=== PATIENT | female | born 1930 | race Two or more races ===

== ENCOUNTER 2017-05-15 09:17 | Inpatient (IN) | payer MEDICARE, OTHER ==
[2017-05-15 09:42] LABS: AADO2 Arterial 230.4 mmHg (7.0-24.0); ADD MAN DIFF? NO; Allen Test ACCEPTAB; Arterial Blood Gas Oxygen Sat 95.8 mmHG (95.0-100.0); Arterial COHb 0.3 % (0.0-3.0); Arterial Fraction of Oxyhgb 95.4 % (93.0-99.0); Arterial HCO3 21.2 mmol/L (22.0-26.0); Arterial MetHb 0.1 % (0.0-1.5); Arterial Total Hemglobin 10.7 g/dl (12.0-18.0); Arterial pCO2 34.9 mmhg (35-45); Blood Gas IEPAP 15/5; Blood Gas PS 10; MODE MASK - BIPAP; Site Right Radial
[2017-05-15 09:45] LABS: WHITE BLOOD COUNT 8.4 10^3/ul (4.8-10.8)
[2017-05-15 09:45] LABS: BASOPHILS % 0.4 % (0.0-2.0); EOSINOPHILS # 0.2 10^3/ul (0.0-0.5); EOSINOPHILS % 2.7 % (0.0-7.0); HEMOGLOBIN 9.8 g/dl (12.0-16.0); LYMPHOCYTES # 0.9 10^3/ul (0.8-2.9); LYMPHOCYTES % 10.6 % (15.0-51.0); MEAN CORPUSCULAR HEMOGLOBIN 31.3 pg (29.0-33.0); MEAN CORPUSCULAR HGB CONC 32.7 g/dl (32.0-37.0); MEAN CORPUSCULAR VOLUME 95.8 fl (82.0-101.0); MEAN PLATELET VOLUME 10.1 fl (7.4-10.4); MONOCYTE # 0.5 10^3/ul (0.3-0.9); MONOCYTES % 5.5 % (0.0-11.0); NEUTROPHIL # 6.7 10^3/ul (1.6-7.5); NEUTROPHILS % 80.3 % (39.0-77.0); PLATELET COUNT 234 10^3/UL (140-415); RED BLOOD COUNT 3.13 10^6/ul (4.20-5.40); RED CELL DISTRIBUTION WIDTH 14.7 % (11.5-14.5)
[2017-05-15] MEDS: NITROGLYCERIN 2% 1 GM OINT PKT TD (09:48)
[2017-05-15] MEDS: ASPIRIN 325 MG TAB PO (09:48)
[2017-05-15] MEDS: FUROSEMIDE 40 MG INJ IV ×2 (09:48→18:34)
[2017-05-15 10:04] LABS: ALANINE AMINOTRANSFERASE 22 IU/L (13-69); ALBUMIN 3.5 g/dl (3.3-4.9); ALBUMIN/GLOBULIN RATIO 1.12; ALKALINE PHOSPHATASE 53 IU/L (42-121); ANION GAP 20 (8-16); ASPARTATE AMINO TRANSFERASE 28 IU/L (15-46); BILIRUBIN,INDIRECT 0.1 mg/dl (0-1.1); BILIRUBIN,TOTAL 0.1 mg/dl (0.2-1.3); BLOOD UREA NITROGEN 51 mg/dl (7-20); CALCIUM 7.9 mg/dl (8.4-10.2); CARBON DIOXIDE 19 mmol/L (21-31); CHLORIDE 108 mmol/L (97-110); CREATININE 1.97 mg/dl (0.44-1.00); GLUCOSE 137 mg/dl (70-220); POTASSIUM 3.7 mmol/L (3.5-5.1); SODIUM 143 mmol/L (135-144); TOTAL PROTEIN 6.6 g/dl (6.1-8.1)
[2017-05-15 10:16] LABS: B-TYPE NATRIURETIC PEPTIDE 30100 PG/ML (0-450)
[2017-05-15 10:36] LABS: INR 1.15; PROTIME 14.9 Sec (11.9-14.9); PT RATIO 1.2
[2017-05-15] MEDS: hydrALAzine 20 MG INJ IV (10:36)
[2017-05-15 10:37] LABS: PARTIAL THROMBOPLASTIN TIME 36.2 Sec (25.0-35.0)
[2017-05-15 10:40] LABS: LACTIC ACID 0.9 mmol/L (0.5-2.0)
[2017-05-15] MEDS ORDERED: ACETAMINOPHEN 325 MG TAB PO ×2 (11:00→15:00)
[2017-05-15] MEDS: ALBUTEROL 0.083% (NEB) 2.5 MG/3 ML AMP NEB (11:51)
[2017-05-15] MEDS: IPRATROPIUM (NEB) 0.5 MG/2.5 ML AMP NEB (11:51)
[2017-05-15 13:28] LABS: LACTIC ACID 0.8 mmol/L (0.5-2.0)
[2017-05-15] MEDS: ONDANSETRON 4 MG INJ IV ×2 (13:54→18:39)
[2017-05-15] MEDS: morphine 4 MG/ML VIAL IV (13:55)
[2017-05-15 17:54] LABS: LACTIC ACID 1.3 mmol/L (0.5-2.0)
[2017-05-15 17:56] LABS: CREATINE KINASE 42 IU/L (23-200)
[2017-05-15 18:07] LABS: CK INDEX 3.5; CK-MB 1.46 ng/ml (0.0-2.4)
[2017-05-15 18:11] LABS: TROPONIN-I 0.289 ng/ml (0.00-0.12)
[2017-05-15] MEDS: NIFEdipine (XL) 60 MG TAB PO (20:27)
[2017-05-15] MEDS: ISOSORBIDE MONONITRATE(SR)60 MG TAB PO (20:28)
[2017-05-15] MEDS: LORAZEPAM 0.5 MG TAB PO (22:16)
[2017-05-15 23:26] LABS: CREATINE KINASE 38 IU/L (23-200)
[2017-05-15 23:40] LABS: CK INDEX 4.2; CK-MB 1.59 ng/ml (0.0-2.4)
[2017-05-15 23:45] LABS: TROPONIN-I 0.262 ng/ml (0.00-0.12)
[2017-05-16] MEDS: PANTOPRAZOLE (EC) 40 MG TAB PO (05:27)
[2017-05-16 07:38] LABS: ADD MAN DIFF? NO
[2017-05-16 07:54] LABS: BASOPHILS % 0.6 % (0.0-2.0); EOSINOPHILS # 0.2 10^3/ul (0.0-0.5); EOSINOPHILS % 3.7 % (0.0-7.0); HEMATOCRIT 26.4 % (37.0-47.0); HEMOGLOBIN 8.7 g/dl (12.0-16.0); LYMPHOCYTES # 1.1 10^3/ul (0.8-2.9); LYMPHOCYTES % 20.9 % (15.0-51.0); MEAN CORPUSCULAR HEMOGLOBIN 31.6 pg (29.0-33.0); MEAN PLATELET VOLUME 9.8 fl (7.4-10.4); MONOCYTE # 0.5 10^3/ul (0.3-0.9); MONOCYTES % 9.8 % (0.0-11.0); NEUTROPHIL # 3.3 10^3/ul (1.6-7.5); NEUTROPHILS % 64.6 % (39.0-77.0); PLATELET COUNT 193 10^3/UL (140-415); RED BLOOD COUNT 2.75 10^6/ul (4.20-5.40); RED CELL DISTRIBUTION WIDTH 14.5 % (11.5-14.5)
[2017-05-16 07:54] LABS: WHITE BLOOD COUNT 5.1 10^3/ul (4.8-10.8)
[2017-05-16 08:00] LABS: ANION GAP 19 (8-16); BLOOD UREA NITROGEN 54 mg/dl (7-20); CALCIUM 8.3 mg/dl (8.4-10.2); CARBON DIOXIDE 25 mmol/L (21-31); CHLORIDE 104 mmol/L (97-110); CREATININE 2.34 mg/dl (0.44-1.00); GLUCOSE 90 mg/dl (70-220); POTASSIUM 3.6 mmol/L (3.5-5.1); SODIUM 144 mmol/L (135-144)
[2017-05-16 08:29] LABS: B-TYPE NATRIURETIC PEPTIDE 52900 PG/ML (0-450)
[2017-05-16] MEDS: FUROSEMIDE 40 MG INJ IV ×2 (08:41→19:09)
[2017-05-16] MEDS: ISOSORBIDE MONONITRATE(SR)60 MG TAB PO ×2 (08:42→13:12)
[2017-05-16] MEDS: METOPROLOL 50 MG TAB PO ×2 (08:43→20:49)
[2017-05-16] MEDS: ASPIRIN (EC) 325 MG TAB PO (08:43)
[2017-05-16] MEDS: LORAZEPAM 0.5 MG TAB PO (20:48)
[2017-05-17] MEDS: PANTOPRAZOLE (EC) 40 MG TAB PO (06:03)
[2017-05-17 08:41] LABS: ADD MAN DIFF? NO
[2017-05-17 08:47] LABS: BASOPHILS % 0.4 % (0.0-2.0); EOSINOPHILS # 0.2 10^3/ul (0.0-0.5); EOSINOPHILS % 4.5 % (0.0-7.0); HEMATOCRIT 24.4 % (37.0-47.0); HEMOGLOBIN 8.2 g/dl (12.0-16.0); MEAN CORPUSCULAR HEMOGLOBIN 31.7 pg (29.0-33.0); MEAN CORPUSCULAR HGB CONC 33.6 g/dl (32.0-37.0); MEAN CORPUSCULAR VOLUME 94.2 fl (82.0-101.0); MEAN PLATELET VOLUME 9.9 fl (7.4-10.4); MONOCYTE # 0.5 10^3/ul (0.3-0.9); MONOCYTES % 9.2 % (0.0-11.0); NEUTROPHIL # 3.2 10^3/ul (1.6-7.5); NEUTROPHILS % 64.7 % (39.0-77.0); PLATELET COUNT 176 10^3/UL (140-415); RED BLOOD COUNT 2.59 10^6/ul (4.20-5.40)
[2017-05-17 08:47] LABS: WHITE BLOOD COUNT 4.9 10^3/ul (4.8-10.8)
[2017-05-17] MEDS: METOPROLOL 50 MG TAB PO (09:03)
[2017-05-17] MEDS: ISOSORBIDE MONONITRATE(SR)60 MG TAB PO (09:03)
[2017-05-17] MEDS: ASPIRIN (EC) 325 MG TAB PO (09:03)
[2017-05-17] MEDS: FUROSEMIDE 40 MG INJ IV (09:04)
[2017-05-17 09:07] LABS: CHOL/HDL RATIO 3.2 RATIO; HDL CHOLESTEROL 35 mg/dl (33-92); LDL CHOLESTEROL,CALCULATED 47 mg/dl; TRIGLYCERIDES 160 mg/dl (0-149)
[2017-05-17 09:07] LABS: CHOLESTEROL 114 mg/dl (100-200)
[2017-05-17 09:11] LABS: CREATINE KINASE 40 IU/L (23-200)
[2017-05-17 09:19] LABS: CK INDEX 2.9; CK-MB 1.16 ng/ml (0.0-2.4)
== END 2017-05-17 14:00 | disposition home or self-care (01) | DRG 291 ==
LOC: E/R 09:17 → MS4 10:33
DX: I13.0 Hypertensive heart and chronic kidney disease with heart failure and stage 1 through stage 4 chronic kidney disease, or unspecified chronic kidney disease (principal); J96.00 Acute respiratory failure, unspecified whether with hypoxia or hypercapnia; N17.9 Acute kidney failure, unspecified; I50.33 Acute on chronic diastolic (congestive) heart failure; I16.1 Hypertensive emergency; N18.9 Chronic kidney disease, unspecified; E11.9 Type 2 diabetes mellitus without complications; J44.9 Chronic obstructive pulmonary disease, unspecified
CPT/HCPCS: 36415; 36600; 71045; 80048; 80053; 80061; 82550; 82553; 82803; 83605; 83880; 84484; 85025; 85610; 85730; 87040; 93005; 93306; 94660; 94664; 96374; 96375; 99291-25

== ENCOUNTER 2017-08-21 17:27 | Inpatient (IN) | payer MEDICARE, OTHER ==
[2017-08-21 18:17] LABS: ADD MAN DIFF? NO
[2017-08-21 18:18] LABS: WHITE BLOOD COUNT 9.5 10^3/ul (4.8-10.8)
[2017-08-21 18:18] LABS: BASOPHILS % 0.3 % (0.0-2.0); EOSINOPHILS # 0.1 10^3/ul (0.0-0.5); EOSINOPHILS % 1.4 % (0.0-7.0); HEMATOCRIT 30.8 % (37.0-47.0); HEMOGLOBIN 9.9 g/dl (12.0-16.0); LYMPHOCYTES # 0.9 10^3/ul (0.8-2.9); LYMPHOCYTES % 9.9 % (15.0-51.0); MEAN CORPUSCULAR HEMOGLOBIN 32.4 pg (29.0-33.0); MEAN CORPUSCULAR HGB CONC 32.1 g/dl (32.0-37.0); MEAN CORPUSCULAR VOLUME 100.7 fl (82.0-101.0); MEAN PLATELET VOLUME 10.8 fl (7.4-10.4); MONOCYTE # 0.5 10^3/ul (0.3-0.9); MONOCYTES % 5.1 % (0.0-11.0); NEUTROPHIL # 7.8 10^3/ul (1.6-7.5); NEUTROPHILS % 82.8 % (39.0-77.0); PLATELET COUNT 230 10^3/UL (140-415); RED BLOOD COUNT 3.06 10^6/ul (4.20-5.40); RED CELL DISTRIBUTION WIDTH 15.6 % (11.5-14.5)
[2017-08-21 18:39] LABS: ANION GAP 16 (8-16); BLOOD UREA NITROGEN 73 mg/dl (7-20); CALCIUM 8.9 mg/dl (8.4-10.2); CARBON DIOXIDE 20 mmol/L (21-31); CHLORIDE 111 mmol/L (97-110); GLUCOSE 142 mg/dl (70-220); POTASSIUM 4.1 mmol/L (3.5-5.1); SODIUM 143 mmol/L (135-144)
[2017-08-21 18:49] LABS: INR 1.16; PT RATIO 1.2
[2017-08-21 18:50] LABS: PARTIAL THROMBOPLASTIN TIME 31.2 Sec (25.0-35.0)
[2017-08-21 18:51] LABS: TROPONIN-I 0.054 ng/ml (0.000-0.120)
[2017-08-21 19:30] LABS: B-TYPE NATRIURETIC PEPTIDE 78300 PG/ML (0-450)
[2017-08-21] MEDS ORDERED: ONDANSETRON 4 MG INJ IV (20:00)
[2017-08-21 20:04] LABS: AADO2 Arterial 185.9 mmHg (7.0-24.0); Allen Test ACCEPTAB; Arterial Base Excess -2.2 mmol/L (-3.0-3); Arterial Blood Gas Oxygen Sat 98.2 mmHG (95.0-100.0); Arterial COHb 0.3 % (0.0-3.0); Arterial Fraction of Oxyhgb 97.7 % (93.0-99.0); Arterial HCO3 21.7 mmol/L (22.0-26.0); Arterial MetHb 0.2 % (0.0-1.5); Arterial Total Hemglobin 9.7 g/dl (12.0-18.0); Arterial pCO2 33.6 mmhg (35-45); Blood Gas IEPAP 15/5; MODE BIPAP; Site Right Radial
[2017-08-21] MEDS: ACETAMINOPHEN 325 MG TAB PO (23:25)
[2017-08-21] MEDS: NIFEdipine (XL) 60 MG TAB PO (23:26)
[2017-08-21] MEDS: FERROUS SULFATE (EC) 325 MG TAB PO (23:26)
[2017-08-22] MEDS: LORAZEPAM 0.5 MG TAB PO ×2 (00:20→22:40)
[2017-08-22 06:22] LABS: ADD MAN DIFF? NO
[2017-08-22 06:28] LABS: WHITE BLOOD COUNT 5.6 10^3/ul (4.8-10.8)
[2017-08-22 06:28] LABS: BASOPHILS % 0.5 % (0.0-2.0); EOSINOPHILS # 0.1 10^3/ul (0.0-0.5); EOSINOPHILS % 1.8 % (0.0-7.0); HEMATOCRIT 25.3 % (37.0-47.0); HEMOGLOBIN 8.2 g/dl (12.0-16.0); LYMPHOCYTES # 1.2 10^3/ul (0.8-2.9); LYMPHOCYTES % 20.7 % (15.0-51.0); MEAN CORPUSCULAR HEMOGLOBIN 32.2 pg (29.0-33.0); MEAN CORPUSCULAR HGB CONC 32.4 g/dl (32.0-37.0); MEAN CORPUSCULAR VOLUME 99.2 fl (82.0-101.0); MEAN PLATELET VOLUME 10.3 fl (7.4-10.4); MONOCYTE # 0.5 10^3/ul (0.3-0.9); MONOCYTES % 8.2 % (0.0-11.0); NEUTROPHIL # 3.8 10^3/ul (1.6-7.5); NEUTROPHILS % 68.4 % (39.0-77.0); PLATELET COUNT 183 10^3/UL (140-415); RED BLOOD COUNT 2.55 10^6/ul (4.20-5.40); RED CELL DISTRIBUTION WIDTH 15.6 % (11.5-14.5)
[2017-08-22 07:03] LABS: ANION GAP 13 (8-16); BLOOD UREA NITROGEN 72 mg/dl (7-20); CALCIUM 8.6 mg/dl (8.4-10.2); CARBON DIOXIDE 23 mmol/L (21-31); CHLORIDE 112 mmol/L (97-110); CREATININE 2.26 mg/dl (0.44-1.00); GLUCOSE 100 mg/dl (70-220); POTASSIUM 3.6 mmol/L (3.5-5.1); SODIUM 144 mmol/L (135-144)
[2017-08-22 07:43] LABS: B-TYPE NATRIURETIC PEPTIDE 85500 PG/ML (0-450)
[2017-08-22] MEDS: FUROSEMIDE 40 MG INJ IV ×3 (08:13→21:15)
[2017-08-22] MEDS: PANTOPRAZOLE (EC) 40 MG TAB PO (08:13)
[2017-08-22] MEDS: METOPROLOL 50 MG TAB PO ×2 (08:14→16:58)
[2017-08-22] MEDS ORDERED: FUROSEMIDE 40 MG TAB PO (09:00)
[2017-08-22] MEDS ORDERED: INSULIN ASPART [NOVOLOG] 3 ML PEN SC ×3 (09:00→11:50)
[2017-08-22] MEDS: INSULIN ASPART [NOVOLOG] 3 ML PEN SC ×4 (09:00→21:00)
[2017-08-22] MEDS: ASPIRIN (EC) 81 MG TAB PO (09:08)
[2017-08-22] MEDS: FENOFIBRATE 145 MG TAB PO (09:08)
[2017-08-22] MEDS: ALLOPURINOL 100 MG TAB PO (09:08)
[2017-08-22] MEDS: NIFEdipine (XL) 60 MG TAB PO ×2 (09:09→21:13)
[2017-08-22] MEDS: FERROUS SULFATE (EC) 325 MG TAB PO ×2 (09:09→21:11)
[2017-08-22] MEDS: POTASSIUM CHLORIDE (SR) 10 MEQ TAB PO (09:09)
[2017-08-22 09:37] LABS: IRON 51 ug/dl (35-150)
[2017-08-22 09:47] LABS: % IRON SATURATION 20 % SAT (22-52); TOTAL IRON BINDING CAPACITY 257 ug/dl (241-421)
[2017-08-22] MEDS ORDERED: GLUCOSE GEL 15 GRAM TUBE PO ×2 (10:00)
[2017-08-22] MEDS ORDERED: DEXTROSE 50% 50 ML SYRINGE IV ×2 (10:00)
[2017-08-22] MEDS ORDERED: GLUCOSE GEL 15 GRAM TUBE BUCCAL (10:00)
[2017-08-22] MEDS ORDERED: GLUCAGON 1 MG INJ IM (10:00)
[2017-08-22] MEDS: EPOETIN 3000 UNITS/ML (NON ESRD/NON ONCOLOGY) SC (17:52)
[2017-08-23] MEDS: ACCU-CHEK XX ×2 (01:35→23:36)
[2017-08-23 01:37] LABS: CREATINE KINASE 22 IU/L (23-200)
[2017-08-23 01:50] LABS: CK INDEX 2.1; CK-MB 0.46 ng/ml (0.0-2.4); TROPONIN-I 0.065 ng/ml (0.000-0.120)
[2017-08-23] MEDS: FUROSEMIDE 40 MG INJ IV ×3 (06:53→21:57)
[2017-08-23] MEDS: PANTOPRAZOLE (EC) 40 MG TAB PO (06:54)
[2017-08-23 07:03] LABS: ADD MAN DIFF? NO
[2017-08-23 07:17] LABS: WHITE BLOOD COUNT 5.1 10^3/ul (4.8-10.8)
[2017-08-23 07:18] LABS: BASOPHILS % 0.2 % (0.0-2.0); EOSINOPHILS # 0.1 10^3/ul (0.0-0.5); EOSINOPHILS % 1.6 % (0.0-7.0); HEMATOCRIT 24.8 % (37.0-47.0); MEAN CORPUSCULAR HEMOGLOBIN 31.7 pg (29.0-33.0); MEAN CORPUSCULAR HGB CONC 32.3 g/dl (32.0-37.0); MEAN CORPUSCULAR VOLUME 98.4 fl (82.0-101.0); MEAN PLATELET VOLUME 10.8 fl (7.4-10.4); MONOCYTE # 0.3 10^3/ul (0.3-0.9); MONOCYTES % 6.7 % (0.0-11.0); NEUTROPHIL # 3.6 10^3/ul (1.6-7.5); NEUTROPHILS % 71.1 % (39.0-77.0); PLATELET COUNT 178 10^3/UL (140-415); RED BLOOD COUNT 2.52 10^6/ul (4.20-5.40); RED CELL DISTRIBUTION WIDTH 15.3 % (11.5-14.5)
[2017-08-23 07:48] LABS: CHOL/HDL RATIO 3.3 RATIO; CK-MB 0.35 ng/ml (0.0-2.4); HDL CHOLESTEROL 26 mg/dl (33-92); LDL CHOLESTEROL,CALCULATED 29 mg/dl; TRIGLYCERIDES 166 mg/dl (0-149)
[2017-08-23 07:48] LABS: CHOLESTEROL 88 mg/dl (100-200)
[2017-08-23 07:50] LABS: CREATINE KINASE < 20 IU/L (23-200)
[2017-08-23] MEDS: INSULIN ASPART [NOVOLOG] 3 ML PEN SC ×4 (07:55→22:02)
[2017-08-23 08:00] LABS: ANION GAP 17 (8-16); BLOOD UREA NITROGEN 84 mg/dl (7-20); CALCIUM 8.4 mg/dl (8.4-10.2); CARBON DIOXIDE 23 mmol/L (21-31); CHLORIDE 104 mmol/L (97-110); CREATININE 2.19 mg/dl (0.44-1.00); GLUCOSE 107 mg/dl (70-220); POTASSIUM 3.9 mmol/L (3.5-5.1); SODIUM 140 mmol/L (135-144)
[2017-08-23 08:04] LABS: B-TYPE NATRIURETIC PEPTIDE 100000 PG/ML (0-450)
[2017-08-23] MEDS: POTASSIUM CHLORIDE (SR) 10 MEQ TAB PO (08:24)
[2017-08-23] MEDS: FENOFIBRATE 145 MG TAB PO (08:24)
[2017-08-23] MEDS: ASPIRIN (EC) 81 MG TAB PO (08:24)
[2017-08-23] MEDS: METOPROLOL 50 MG TAB PO ×2 (08:24→17:35)
[2017-08-23] MEDS: FERROUS SULFATE (EC) 325 MG TAB PO ×2 (08:24→21:54)
[2017-08-23] MEDS: NIFEdipine (XL) 60 MG TAB PO ×2 (08:25→21:57)
[2017-08-23] MEDS: ALLOPURINOL 100 MG TAB PO (08:25)
[2017-08-23 14:28] LABS: CREATINE KINASE 21 IU/L (23-200)
[2017-08-23 14:42] LABS: CK INDEX 2.2; CK-MB 0.46 ng/ml (0.0-2.4); TROPONIN-I 0.047 ng/ml (0.000-0.120)
[2017-08-23] MEDS: LORAZEPAM 0.5 MG TAB PO (21:57)
[2017-08-24] MEDS: HYDROCODONE/APAP (5/325) TAB PO (04:16)
[2017-08-24] MEDS: PANTOPRAZOLE (EC) 40 MG TAB PO (04:17)
[2017-08-24] MEDS: FUROSEMIDE 40 MG INJ IV ×3 (06:55→17:17)
[2017-08-24] MEDS: METOPROLOL 50 MG TAB PO ×2 (07:34→17:16)
[2017-08-24] MEDS: INSULIN ASPART [NOVOLOG] 3 ML PEN SC ×4 (07:37→21:00)
[2017-08-24] MEDS: ALLOPURINOL 100 MG TAB PO (08:19)
[2017-08-24] MEDS: FERROUS SULFATE (EC) 325 MG TAB PO ×2 (08:19→21:08)
[2017-08-24] MEDS: FENOFIBRATE 145 MG TAB PO (08:20)
[2017-08-24] MEDS: POTASSIUM CHLORIDE (SR) 10 MEQ TAB PO ×2 (08:20→21:08)
[2017-08-24] MEDS: ASPIRIN (EC) 81 MG TAB PO (08:21)
[2017-08-24] MEDS: NIFEdipine (XL) 60 MG TAB PO ×2 (08:21→21:09)
[2017-08-24] MEDS ORDERED: POTASSIUM CHLORIDE (SR) 10 MEQ TAB PO (18:00)
[2017-08-24 19:16] LABS: B-TYPE NATRIURETIC PEPTIDE 122000 PG/ML (0-450)
[2017-08-24] MEDS: LORAZEPAM 0.5 MG TAB PO (23:05)
[2017-08-25] MEDS: ACCU-CHEK XX (02:00)
[2017-08-25] MEDS: FUROSEMIDE 40 MG INJ IV ×3 (05:38→22:17)
[2017-08-25 06:19] LABS: ADD MAN DIFF? NO
[2017-08-25 06:31] LABS: WHITE BLOOD COUNT 6.2 10^3/ul (4.8-10.8)
[2017-08-25 06:31] LABS: BASOPHILS % 0.6 % (0.0-2.0); EOSINOPHILS # 0.2 10^3/ul (0.0-0.5); EOSINOPHILS % 3.4 % (0.0-7.0); HEMATOCRIT 28.6 % (37.0-47.0); HEMOGLOBIN 9.6 g/dl (12.0-16.0); LYMPHOCYTES # 1.2 10^3/ul (0.8-2.9); LYMPHOCYTES % 19.6 % (15.0-51.0); MEAN CORPUSCULAR HEMOGLOBIN 32.7 pg (29.0-33.0); MEAN CORPUSCULAR HGB CONC 33.6 g/dl (32.0-37.0); MEAN CORPUSCULAR VOLUME 97.3 fl (82.0-101.0); MEAN PLATELET VOLUME 10.6 fl (7.4-10.4); MONOCYTE # 0.5 10^3/ul (0.3-0.9); MONOCYTES % 7.2 % (0.0-11.0); NEUTROPHIL # 4.3 10^3/ul (1.6-7.5); NEUTROPHILS % 68.6 % (39.0-77.0); PLATELET COUNT 233 10^3/UL (140-415); RED BLOOD COUNT 2.94 10^6/ul (4.20-5.40); RED CELL DISTRIBUTION WIDTH 15.1 % (11.5-14.5)
[2017-08-25 06:55] LABS: ANION GAP 18 (8-16); BLOOD UREA NITROGEN 104 mg/dl (7-20); CALCIUM 8.5 mg/dl (8.4-10.2); CARBON DIOXIDE 22 mmol/L (21-31); CHLORIDE 105 mmol/L (97-110); CREATININE 2.84 mg/dl (0.44-1.00); GLUCOSE 113 mg/dl (70-220); POTASSIUM 3.6 mmol/L (3.5-5.1); SODIUM 141 mmol/L (135-144)
[2017-08-25 07:13] LABS: B-TYPE NATRIURETIC PEPTIDE 128000 PG/ML (0-450)
[2017-08-25] MEDS: INSULIN ASPART [NOVOLOG] 3 ML PEN SC ×4 (07:55→22:16)
[2017-08-25] MEDS: PANTOPRAZOLE (EC) 40 MG TAB PO (09:44)
[2017-08-25] MEDS: FENOFIBRATE 145 MG TAB PO (09:45)
[2017-08-25] MEDS: ACETAMINOPHEN 325 MG TAB PO (09:45)
[2017-08-25] MEDS: ASPIRIN (EC) 81 MG TAB PO (09:45)
[2017-08-25] MEDS: FERROUS SULFATE (EC) 325 MG TAB PO ×2 (09:45→22:17)
[2017-08-25] MEDS: POTASSIUM CHLORIDE (SR) 10 MEQ TAB PO ×2 (09:45→22:18)
[2017-08-25] MEDS: ALLOPURINOL 100 MG TAB PO (09:45)
[2017-08-25] MEDS: METOPROLOL 50 MG TAB PO ×2 (09:46→18:01)
[2017-08-25] MEDS: NIFEdipine (XL) 60 MG TAB PO ×2 (09:47→22:18)
[2017-08-25] MEDS: METOLAZONE 5 MG TAB PO (15:14)
[2017-08-25] MEDS: ALBUMIN HUMAN 25% 50 ML IV (17:54)
[2017-08-25] MEDS: EPOETIN 3000 UNITS/ML (NON ESRD/NON ONCOLOGY) SC (17:57)
[2017-08-25] MEDS: LORAZEPAM 0.5 MG TAB PO (22:24)
[2017-08-26] MEDS: ALBUMIN HUMAN 25% 50 ML IV ×2 (00:48→09:12)
[2017-08-26] MEDS: ACCU-CHEK XX (02:00)
[2017-08-26 06:40] LABS: ADD MAN DIFF? NO
[2017-08-26 06:43] LABS: BASOPHILS % 0.7 % (0.0-2.0); EOSINOPHILS # 0.3 10^3/ul (0.0-0.5); EOSINOPHILS % 4.4 % (0.0-7.0); HEMATOCRIT 27.9 % (37.0-47.0); HEMOGLOBIN 9.6 g/dl (12.0-16.0); LYMPHOCYTES # 1.5 10^3/ul (0.8-2.9); MEAN CORPUSCULAR HEMOGLOBIN 33.1 pg (29.0-33.0); MEAN CORPUSCULAR HGB CONC 34.4 g/dl (32.0-37.0); MEAN CORPUSCULAR VOLUME 96.2 fl (82.0-101.0); MEAN PLATELET VOLUME 10.6 fl (7.4-10.4); MONOCYTE # 0.5 10^3/ul (0.3-0.9); MONOCYTES % 7.7 % (0.0-11.0); NEUTROPHIL # 3.6 10^3/ul (1.6-7.5); NEUTROPHILS % 61.9 % (39.0-77.0); PLATELET COUNT 252 10^3/UL (140-415); RED CELL DISTRIBUTION WIDTH 14.9 % (11.5-14.5)
[2017-08-26 06:43] LABS: WHITE BLOOD COUNT 5.9 10^3/ul (4.8-10.8)
[2017-08-26] MEDS: FUROSEMIDE 40 MG INJ IV ×2 (06:45→13:25)
[2017-08-26] MEDS: PANTOPRAZOLE (EC) 40 MG TAB PO (06:46)
[2017-08-26 07:07] LABS: ANION GAP 22 (8-16); BLOOD UREA NITROGEN 113 mg/dl (7-20); CALCIUM 8.9 mg/dl (8.4-10.2); CARBON DIOXIDE 25 mmol/L (21-31); CHLORIDE 99 mmol/L (97-110); CREATININE 3.09 mg/dl (0.44-1.00); GLUCOSE 106 mg/dl (70-220); POTASSIUM 3.5 mmol/L (3.5-5.1); SODIUM 142 mmol/L (135-144)
[2017-08-26 07:34] LABS: B-TYPE NATRIURETIC PEPTIDE 122000 PG/ML (0-450)
[2017-08-26] MEDS: INSULIN ASPART [NOVOLOG] 3 ML PEN SC ×2 (07:55→11:50)
[2017-08-26] MEDS: FERROUS SULFATE (EC) 325 MG TAB PO (09:07)
[2017-08-26] MEDS: ACETAMINOPHEN 325 MG TAB PO (09:07)
[2017-08-26] MEDS: POTASSIUM CHLORIDE (SR) 10 MEQ TAB PO (09:07)
[2017-08-26] MEDS: ALLOPURINOL 100 MG TAB PO (09:08)
[2017-08-26] MEDS: NIFEdipine (XL) 60 MG TAB PO (09:08)
[2017-08-26] MEDS: ASPIRIN (EC) 81 MG TAB PO (09:08)
[2017-08-26] MEDS: METOLAZONE 5 MG TAB PO (09:08)
[2017-08-26] MEDS: METOPROLOL 50 MG TAB PO (09:09)
[2017-08-26] MEDS: FENOFIBRATE 145 MG TAB PO (09:09)
== END 2017-08-26 15:55 | disposition home or self-care (01) | DRG 291 ==
LOC: E/R 17:27 → TEL 20:00
PROC: 5A09457 Assistance with Respiratory Ventilation, 24-96 Consecutive Hours, Continuous Positive Airway Pressure (ICD-10-PCS; principal; 2017-08-21)
DX: I13.0 Hypertensive heart and chronic kidney disease with heart failure and stage 1 through stage 4 chronic kidney disease, or unspecified chronic kidney disease (principal); J96.01 Acute respiratory failure with hypoxia; I50.43 Acute on chronic combined systolic (congestive) and diastolic (congestive) heart failure; J96.02 Acute respiratory failure with hypercapnia; N17.9 Acute kidney failure, unspecified; E11.22 Type 2 diabetes mellitus with diabetic chronic kidney disease; N18.9 Chronic kidney disease, unspecified; M19.90 Unspecified osteoarthritis, unspecified site; I49.3 Ventricular premature depolarization; D63.1 Anemia in chronic kidney disease; E11.21 Type 2 diabetes mellitus with diabetic nephropathy; I25.10 Atherosclerotic heart disease of native coronary artery without angina pectoris; J84.10 Pulmonary fibrosis, unspecified; M41.9 Scoliosis, unspecified; F03.90 Unspecified dementia, unspecified severity, without behavioral disturbance, psychotic disturbance, mood disturbance, and anxiety; E78.5 Hyperlipidemia, unspecified; J44.9 Chronic obstructive pulmonary disease, unspecified; Z86.73 Personal history of transient ischemic attack (TIA), and cerebral infarction without residual deficits; I42.9 Cardiomyopathy, unspecified
CPT/HCPCS: 36415; 36600; 71045; 72100; 80048; 80061; 82550; 82553; 82803; 82962; 83540; 83880; 84484; 85025; 85610; 85730; 93005; 93306; 94660; 99291-25

== ENCOUNTER 2017-10-14 09:05 | Inpatient (IN) | payer MEDICARE, OTHER ==
[2017-10-14 09:35] LABS: ADD MAN DIFF? NO
[2017-10-14 09:39] LABS: BASOPHILS % 0.4 % (0.0-2.0); EOSINOPHILS # 0.1 10^3/ul (0.0-0.5); EOSINOPHILS % 1.8 % (0.0-7.0); HEMATOCRIT 30.5 % (37.0-47.0); HEMOGLOBIN 9.9 g/dl (12.0-16.0); IMMATURE GRANS #M 0.02 10^3/ul; IMMATURE GRANS % (M) 0.3 %; LYMPHOCYTES # 0.9 10^3/ul (0.8-2.9); LYMPHOCYTES % 13.9 % (15.0-51.0); MEAN CORPUSCULAR HEMOGLOBIN 31.9 pg (29.0-33.0); MEAN CORPUSCULAR HGB CONC 32.5 g/dl (32.0-37.0); MEAN CORPUSCULAR VOLUME 98.4 fl (82.0-101.0); MEAN PLATELET VOLUME 10.4 fl (7.4-10.4); MONOCYTE # 0.3 10^3/ul (0.3-0.9); MONOCYTES % 5.1 % (0.0-11.0); NEUTROPHIL # 5.2 10^3/ul (1.6-7.5); NEUTROPHILS % 78.5 % (39.0-77.0); PLATELET COUNT 239 10^3/UL (140-415); RED CELL DISTRIBUTION WIDTH 15.1 % (11.5-14.5)
[2017-10-14 09:39] LABS: WHITE BLOOD COUNT 6.7 10^3/ul (4.8-10.8)
[2017-10-14] MEDS: CEFEPIME 2GM/50 ML (PMX) 50 ML IVPB (09:40)
[2017-10-14 09:57] LABS: INR 1.16; PARTIAL THROMBOPLASTIN TIME 31.5 Sec (25.0-35.0); PT RATIO 1.2
[2017-10-14 09:59] LABS: LACTIC ACID 0.9 mmol/L (0.5-2.0)
[2017-10-14 10:01] LABS: ALANINE AMINOTRANSFERASE 15 IU/L (13-69); ALBUMIN 3.6 g/dl (3.3-4.9); ALBUMIN/GLOBULIN RATIO 1.09; ALKALINE PHOSPHATASE 41 IU/L (42-121); ANION GAP 17 (8-16); ASPARTATE AMINO TRANSFERASE 34 IU/L (15-46); BLOOD UREA NITROGEN 60 mg/dl (7-20); CARBON DIOXIDE 23 mmol/L (21-31); CHLORIDE 105 mmol/L (97-110); CREATININE 2.18 mg/dl (0.44-1.00); GLUCOSE 135 mg/dl (70-220); SODIUM 141 mmol/L (135-144); TOTAL PROTEIN 6.9 g/dl (6.1-8.1)
[2017-10-14 10:12] LABS: TROPONIN-I 0.059 ng/ml (0.000-0.120)
[2017-10-14] MEDS: VANCOMYCIN 1 GM (PMX) 250 ML IVPB (10:29)
[2017-10-14] MEDS ORDERED: ACETAMINOPHEN 325 MG TAB PO (11:30)
[2017-10-14 12:23] LABS: LACTIC ACID 0.6 mmol/L (0.5-2.0)
[2017-10-14] MEDS: ONDANSETRON 4 MG INJ IV (13:37)
[2017-10-14] MEDS: morphine 4 MG/ML VIAL IV (13:37)
[2017-10-14] MEDS ORDERED: DEXTROSE 50% 50 ML SYRINGE IV ×2 (17:30)
[2017-10-14] MEDS ORDERED: GLUCAGON 1 MG INJ IM (17:30)
[2017-10-14] MEDS ORDERED: GLUCOSE GEL 15 GRAM TUBE BUCCAL (17:30)
[2017-10-14] MEDS ORDERED: GLUCOSE GEL 15 GRAM TUBE PO ×2 (17:30)
[2017-10-14] MEDS: INSULIN ASPART [NOVOLOG] 3 ML PEN SC ×2 (17:37→21:00)
[2017-10-14] MEDS ORDERED: ALBUTEROL/IPRATROPIUM (NEB) 3 ML AMP HHN (18:00)
[2017-10-14] MEDS: POTASSIUM CHLORIDE (SR) 10 MEQ TAB PO (18:21)
[2017-10-14] MEDS: CEFTRIAXONE 1 GM/50 ML (PMX) 50 ML IVPB (18:21)
[2017-10-14] MEDS: FUROSEMIDE 40 MG INJ IV (18:21)
[2017-10-14] MEDS: ASPIRIN (EC) 81 MG TAB PO (18:21)
[2017-10-14] MEDS: ISOSORBIDE MONONITRATE(SR)60 MG TAB PO (18:21)
[2017-10-14] MEDS: FENOFIBRATE 145 MG TAB PO (18:22)
[2017-10-14] MEDS: ALBUTEROL/IPRATROPIUM (NEB) 3 ML AMP HHN (20:03)
[2017-10-14] MEDS: FERROUS SULFATE (EC) 325 MG TAB PO (21:28)
[2017-10-14] MEDS: NIFEdipine (XL) 60 MG TAB PO (21:28)
[2017-10-14] MEDS: LORAZEPAM 0.5 MG TAB PO (22:34)
[2017-10-15] MEDS: ACCU-CHEK XX (02:00)
[2017-10-15] MEDS: ALBUTEROL/IPRATROPIUM (NEB) 3 ML AMP HHN ×4 (02:13→21:18)
[2017-10-15 06:07] LABS: ADD MAN DIFF? NO
[2017-10-15 06:20] LABS: BASOPHILS % 0.7 % (0.0-2.0); EOSINOPHILS # 0.2 10^3/ul (0.0-0.5); EOSINOPHILS % 3.4 % (0.0-7.0); HEMATOCRIT 26.4 % (37.0-47.0); HEMOGLOBIN 8.3 g/dl (12.0-16.0); IMMATURE GRANS #M 0.02 10^3/ul; IMMATURE GRANS % (M) 0.5 %; LYMPHOCYTES # 0.9 10^3/ul (0.8-2.9); LYMPHOCYTES % 20.5 % (15.0-51.0); MEAN CORPUSCULAR HEMOGLOBIN 32.2 pg (29.0-33.0); MEAN CORPUSCULAR HGB CONC 31.4 g/dl (32.0-37.0); MEAN CORPUSCULAR VOLUME 102.3 fl (82.0-101.0); MEAN PLATELET VOLUME 9.9 fl (7.4-10.4); MONOCYTE # 0.4 10^3/ul (0.3-0.9); MONOCYTES % 9.5 % (0.0-11.0); NEUTROPHIL # 2.9 10^3/ul (1.6-7.5); NEUTROPHILS % 65.4 % (39.0-77.0); PLATELET COUNT 166 10^3/UL (140-415); RED BLOOD COUNT 2.58 10^6/ul (4.20-5.40); RED CELL DISTRIBUTION WIDTH 14.9 % (11.5-14.5)
[2017-10-15 06:20] LABS: WHITE BLOOD COUNT 4.4 10^3/ul (4.8-10.8)
[2017-10-15 06:47] LABS: ANION GAP 15 (8-16); BLOOD UREA NITROGEN 63 mg/dl (7-20); CALCIUM 8.5 mg/dl (8.4-10.2); CARBON DIOXIDE 23 mmol/L (21-31); CHLORIDE 107 mmol/L (97-110); CREATININE 2.42 mg/dl (0.44-1.00); GLUCOSE 90 mg/dl (70-220); POTASSIUM 4.1 mmol/L (3.5-5.1); SODIUM 141 mmol/L (135-144)
[2017-10-15 07:05] LABS: B-TYPE NATRIURETIC PEPTIDE 143000 PG/ML (0-450)
[2017-10-15] MEDS: PANTOPRAZOLE (EC) 40 MG TAB PO (07:33)
[2017-10-15] MEDS: INSULIN ASPART [NOVOLOG] 3 ML PEN SC ×4 (07:59→21:00)
[2017-10-15] MEDS: POTASSIUM CHLORIDE (SR) 10 MEQ TAB PO (09:37)
[2017-10-15] MEDS: NIFEdipine (XL) 60 MG TAB PO ×2 (09:37→21:57)
[2017-10-15] MEDS: FERROUS SULFATE (EC) 325 MG TAB PO ×2 (09:37→21:57)
[2017-10-15] MEDS: FENOFIBRATE 145 MG TAB PO (09:37)
[2017-10-15] MEDS: ISOSORBIDE MONONITRATE(SR)60 MG TAB PO (09:37)
[2017-10-15] MEDS: ASPIRIN (EC) 81 MG TAB PO (09:37)
[2017-10-15] MEDS: FUROSEMIDE 40 MG INJ IV ×2 (09:38→17:09)
[2017-10-15 11:42] LABS: IRON 67 ug/dl (35-150)
[2017-10-15 11:52] LABS: % IRON SATURATION 26 % SAT (22-52); TOTAL IRON BINDING CAPACITY 254 ug/dl (241-421)
[2017-10-15] MEDS: CEFTRIAXONE 1 GM/50 ML (PMX) 50 ML IVPB (17:09)
[2017-10-15] MEDS: LORAZEPAM 0.5 MG TAB PO (23:59)
[2017-10-16] MEDS: ACCU-CHEK XX (02:00)
[2017-10-16] MEDS: ALBUTEROL/IPRATROPIUM (NEB) 3 ML AMP HHN ×4 (02:06→20:09)
[2017-10-16 05:46] LABS: ADD MAN DIFF? NO
[2017-10-16 05:47] LABS: BASOPHILS % 0.5 % (0.0-2.0); EOSINOPHILS # 0.1 10^3/ul (0.0-0.5); EOSINOPHILS % 3.2 % (0.0-7.0); HEMATOCRIT 26.2 % (37.0-47.0); HEMOGLOBIN 8.5 g/dl (12.0-16.0); LYMPHOCYTES # 0.9 10^3/ul (0.8-2.9); LYMPHOCYTES % 19.5 % (15.0-51.0); MEAN CORPUSCULAR HEMOGLOBIN 32.9 pg (29.0-33.0); MEAN CORPUSCULAR HGB CONC 32.4 g/dl (32.0-37.0); MEAN CORPUSCULAR VOLUME 101.6 fl (82.0-101.0); MEAN PLATELET VOLUME 9.9 fl (7.4-10.4); MONOCYTE # 0.4 10^3/ul (0.3-0.9); MONOCYTES % 8.6 % (0.0-11.0); PLATELET COUNT 173 10^3/UL (140-415); RED BLOOD COUNT 2.58 10^6/ul (4.20-5.40); RED CELL DISTRIBUTION WIDTH 14.7 % (11.5-14.5)
[2017-10-16 05:47] LABS: WHITE BLOOD COUNT 4.4 10^3/ul (4.8-10.8)
[2017-10-16 06:14] LABS: ALANINE AMINOTRANSFERASE 23 IU/L (13-69); ALKALINE PHOSPHATASE 28 IU/L (42-121); ANION GAP 14 (8-16); ASPARTATE AMINO TRANSFERASE 28 IU/L (15-46); BLOOD UREA NITROGEN 70 mg/dl (7-20); CALCIUM 8.2 mg/dl (8.4-10.2); CARBON DIOXIDE 24 mmol/L (21-31); CHLORIDE 105 mmol/L (97-110); CREATININE 2.59 mg/dl (0.44-1.00); GLUCOSE 98 mg/dl (70-220); POTASSIUM 4.1 mmol/L (3.5-5.1); SODIUM 139 mmol/L (135-144)
[2017-10-16] MEDS: FUROSEMIDE 40 MG INJ IV ×2 (06:17→17:18)
[2017-10-16] MEDS: PANTOPRAZOLE (EC) 40 MG TAB PO (06:17)
[2017-10-16 06:21] LABS: URIC ACID 9.1 mg/dl (3.1-7.9)
[2017-10-16 07:17] LABS: CREATININE,URINE RANDOM 28.26 mg/dl (20-320)
[2017-10-16] MEDS: INSULIN ASPART [NOVOLOG] 3 ML PEN SC ×4 (08:00→20:54)
[2017-10-16] MEDS: FENOFIBRATE 145 MG TAB PO (08:37)
[2017-10-16] MEDS: NIFEdipine (XL) 60 MG TAB PO ×2 (08:37→20:54)
[2017-10-16] MEDS: POTASSIUM CHLORIDE (SR) 10 MEQ TAB PO (08:37)
[2017-10-16] MEDS: ASPIRIN (EC) 81 MG TAB PO (08:38)
[2017-10-16] MEDS: FERROUS SULFATE (EC) 325 MG TAB PO ×2 (08:38→20:54)
[2017-10-16] MEDS: ALLOPURINOL 100 MG TAB PO ×2 (08:38→20:54)
[2017-10-16] MEDS: ISOSORBIDE MONONITRATE(SR)60 MG TAB PO (08:38)
[2017-10-16 09:07] LABS: B-TYPE NATRIURETIC PEPTIDE 134000 PG/ML (0-450)
[2017-10-16 10:45] LABS: IMMEDIATE SPIN CROSSMATCH 1 1
[2017-10-16] MEDS: CEFTRIAXONE 1 GM/50 ML (PMX) 50 ML IVPB (17:18)
[2017-10-16] MEDS: LORAZEPAM 0.5 MG TAB PO (22:58)
[2017-10-17] MEDS: ALBUTEROL/IPRATROPIUM (NEB) 3 ML AMP HHN ×4 (01:16→20:59)
[2017-10-17] MEDS: ACETAMINOPHEN 325 MG TAB PO (01:33)
[2017-10-17] MEDS: ACCU-CHEK XX ×2 (02:00→21:17)
[2017-10-17] MEDS: HYDROCODONE/APAP (5/325) TAB PO (04:43)
[2017-10-17 05:54] LABS: ADD MAN DIFF? NO
[2017-10-17 05:56] LABS: BASOPHILS % 0.5 % (0.0-2.0); EOSINOPHILS # 0.1 10^3/ul (0.0-0.5); HEMATOCRIT 33.3 % (37.0-47.0); HEMOGLOBIN 11.2 g/dl (12.0-16.0); LYMPHOCYTES # 0.8 10^3/ul (0.8-2.9); LYMPHOCYTES % 13.6 % (15.0-51.0); MEAN CORPUSCULAR HEMOGLOBIN 32.4 pg (29.0-33.0); MEAN CORPUSCULAR HGB CONC 33.6 g/dl (32.0-37.0); MEAN CORPUSCULAR VOLUME 96.2 fl (82.0-101.0); MEAN PLATELET VOLUME 10.5 fl (7.4-10.4); MONOCYTE # 0.5 10^3/ul (0.3-0.9); MONOCYTES % 8.9 % (0.0-11.0); NEUTROPHIL # 4.4 10^3/ul (1.6-7.5); NEUTROPHILS % 74.7 % (39.0-77.0); PLATELET COUNT 192 10^3/UL (140-415); RED BLOOD COUNT 3.46 10^6/ul (4.20-5.40); RED CELL DISTRIBUTION WIDTH 16.1 % (11.5-14.5)
[2017-10-17] MEDS: FUROSEMIDE 40 MG INJ IV ×2 (06:11→17:29)
[2017-10-17] MEDS: PANTOPRAZOLE (EC) 40 MG TAB PO (06:11)
[2017-10-17 06:32] LABS: ANION GAP 17 (8-16); BLOOD UREA NITROGEN 72 mg/dl (7-20); CALCIUM 8.9 mg/dl (8.4-10.2); CARBON DIOXIDE 24 mmol/L (21-31); CHLORIDE 103 mmol/L (97-110); CREATININE 2.56 mg/dl (0.44-1.00); GLUCOSE 131 mg/dl (70-220); POTASSIUM 3.7 mmol/L (3.5-5.1); SODIUM 140 mmol/L (135-144)
[2017-10-17 06:54] LABS: B-TYPE NATRIURETIC PEPTIDE 143000 PG/ML (0-450)
[2017-10-17] MEDS: INSULIN ASPART [NOVOLOG] 3 ML PEN SC ×4 (07:40→20:23)
[2017-10-17] MEDS ORDERED: MAGNESIUM HYDROXIDE 30ML CUP PO (08:00)
[2017-10-17] MEDS ORDERED: BISACODYL 10 MG SUPP PR (08:00)
[2017-10-17] MEDS ORDERED: CEFTRIAXONE 1 GM/50 ML (PMX) 50 ML IVPB (08:30)
[2017-10-17] MEDS: FERROUS SULFATE (EC) 325 MG TAB PO ×2 (08:45→21:16)
[2017-10-17] MEDS: NIFEdipine (XL) 60 MG TAB PO ×2 (08:46→21:16)
[2017-10-17] MEDS: ASPIRIN (EC) 81 MG TAB PO (08:46)
[2017-10-17] MEDS: DOCUSATE SODIUM 250 MG CAP PO (08:46)
[2017-10-17] MEDS: FENOFIBRATE 145 MG TAB PO (08:46)
[2017-10-17] MEDS: POTASSIUM CHLORIDE (SR) 10 MEQ TAB PO (08:46)
[2017-10-17] MEDS: ALLOPURINOL 100 MG TAB PO ×2 (08:47→21:16)
[2017-10-17] MEDS: ISOSORBIDE MONONITRATE(SR)60 MG TAB PO (08:47)
[2017-10-17] MEDS: ONDANSETRON 4 MG INJ IV (15:56)
[2017-10-17] MEDS: CEFTRIAXONE 1 GM/50 ML (PMX) 50 ML IVPB (17:29)
[2017-10-17] MEDS: LORAZEPAM 0.5 MG TAB PO (22:38)
[2017-10-18] MEDS: ALBUTEROL/IPRATROPIUM (NEB) 3 ML AMP HHN ×4 (02:00→21:54)
[2017-10-18] MEDS: PANTOPRAZOLE (EC) 40 MG TAB PO (06:11)
[2017-10-18] MEDS: FUROSEMIDE 40 MG INJ IV ×2 (06:22→17:18)
[2017-10-18] MEDS: INSULIN ASPART [NOVOLOG] 3 ML PEN SC ×4 (07:43→20:30)
[2017-10-18] MEDS: FERROUS SULFATE (EC) 325 MG TAB PO ×2 (08:00→20:30)
[2017-10-18] MEDS: FENOFIBRATE 145 MG TAB PO (08:00)
[2017-10-18] MEDS: DOCUSATE SODIUM 250 MG CAP PO (08:00)
[2017-10-18] MEDS: ALLOPURINOL 100 MG TAB PO ×2 (08:00→20:30)
[2017-10-18] MEDS: POTASSIUM CHLORIDE (SR) 10 MEQ TAB PO (08:00)
[2017-10-18] MEDS: ISOSORBIDE MONONITRATE(SR)60 MG TAB PO (08:01)
[2017-10-18] MEDS: NIFEdipine (XL) 60 MG TAB PO ×2 (08:01→20:30)
[2017-10-18] MEDS: ASPIRIN (EC) 81 MG TAB PO (08:01)
[2017-10-18] MEDS: CEFTRIAXONE 1 GM/50 ML (PMX) 50 ML IVPB (17:18)
[2017-10-18] MEDS: LORAZEPAM 0.5 MG TAB PO (21:57)
[2017-10-19] MEDS: ALBUTEROL/IPRATROPIUM (NEB) 3 ML AMP HHN ×2 (01:11→08:31)
[2017-10-19] MEDS: ACCU-CHEK XX (02:00)
[2017-10-19] MEDS: FUROSEMIDE 40 MG INJ IV (05:41)
[2017-10-19] MEDS: PANTOPRAZOLE (EC) 40 MG TAB PO (05:41)
[2017-10-19] MEDS: HYDROCODONE/APAP (5/325) TAB PO (05:43)
[2017-10-19 06:13] LABS: ADD MAN DIFF? NO
[2017-10-19 06:16] LABS: BASOPHILS % 0.5 % (0.0-2.0); EOSINOPHILS # 0.2 10^3/ul (0.0-0.5); HEMATOCRIT 33.6 % (37.0-47.0); HEMOGLOBIN 11.1 g/dl (12.0-16.0); LYMPHOCYTES # 1.2 10^3/ul (0.8-2.9); LYMPHOCYTES % 18.2 % (15.0-51.0); MEAN CORPUSCULAR HEMOGLOBIN 31.8 pg (29.0-33.0); MEAN CORPUSCULAR VOLUME 96.3 fl (82.0-101.0); MEAN PLATELET VOLUME 10.3 fl (7.4-10.4); MONOCYTE # 0.6 10^3/ul (0.3-0.9); MONOCYTES % 8.9 % (0.0-11.0); NEUTROPHIL # 4.6 10^3/ul (1.6-7.5); NEUTROPHILS % 69.1 % (39.0-77.0); PLATELET COUNT 193 10^3/UL (140-415); RED BLOOD COUNT 3.49 10^6/ul (4.20-5.40); RED CELL DISTRIBUTION WIDTH 15.8 % (11.5-14.5)
[2017-10-19 06:16] LABS: WHITE BLOOD COUNT 6.6 10^3/ul (4.8-10.8)
[2017-10-19 07:00] LABS: ANION GAP 18 (8-16); BLOOD UREA NITROGEN 80 mg/dl (7-20); CALCIUM 8.8 mg/dl (8.4-10.2); CARBON DIOXIDE 23 mmol/L (21-31); CHLORIDE 105 mmol/L (97-110); CREATININE 2.39 mg/dl (0.44-1.00); GLUCOSE 117 mg/dl (70-220); POTASSIUM 4.1 mmol/L (3.5-5.1); SODIUM 142 mmol/L (135-144)
[2017-10-19 07:05] LABS: B-TYPE NATRIURETIC PEPTIDE 128000 PG/ML (0-450)
[2017-10-19] MEDS: POTASSIUM CHLORIDE (SR) 10 MEQ TAB PO (08:18)
[2017-10-19] MEDS: ASPIRIN (EC) 81 MG TAB PO (08:18)
[2017-10-19] MEDS: ISOSORBIDE MONONITRATE(SR)60 MG TAB PO (08:18)
[2017-10-19] MEDS: DOCUSATE SODIUM 250 MG CAP PO (08:18)
[2017-10-19] MEDS: NIFEdipine (XL) 60 MG TAB PO (08:18)
[2017-10-19] MEDS: ALLOPURINOL 100 MG TAB PO (08:18)
[2017-10-19] MEDS: FERROUS SULFATE (EC) 325 MG TAB PO (08:18)
[2017-10-19] MEDS: FENOFIBRATE 145 MG TAB PO (08:18)
[2017-10-19] MEDS: INSULIN ASPART [NOVOLOG] 3 ML PEN SC ×2 (08:29→11:47)
[2017-10-19] MEDS: CEFTRIAXONE 1 GM/50 ML (PMX) 50 ML IVPB (12:49)
== END 2017-10-19 14:07 | disposition home health service (06) | DRG 871 ==
LOC: E/R 09:05 → 6WM 11:24
PROC: 30233N1 Transfusion of Nonautologous Red Blood Cells into Peripheral Vein, Percutaneous Approach (ICD-10-PCS; principal; 2017-10-16)
DX: A41.9 Sepsis, unspecified organism (principal); N17.0 Acute kidney failure with tubular necrosis; J18.9 Pneumonia, unspecified organism; I13.0 Hypertensive heart and chronic kidney disease with heart failure and stage 1 through stage 4 chronic kidney disease, or unspecified chronic kidney disease; J84.9 Interstitial pulmonary disease, unspecified; E11.42 Type 2 diabetes mellitus with diabetic polyneuropathy; E11.21 Type 2 diabetes mellitus with diabetic nephropathy; I50.9 Heart failure, unspecified; E11.22 Type 2 diabetes mellitus with diabetic chronic kidney disease; M41.9 Scoliosis, unspecified; D63.1 Anemia in chronic kidney disease; G30.9 Alzheimer's disease, unspecified; F02.80 Dementia in other diseases classified elsewhere, unspecified severity, without behavioral disturbance, psychotic disturbance, mood disturbance, and anxiety; N18.9 Chronic kidney disease, unspecified; I25.10 Atherosclerotic heart disease of native coronary artery without angina pectoris; M19.90 Unspecified osteoarthritis, unspecified site; K21.9 Gastro-esophageal reflux disease without esophagitis; E78.5 Hyperlipidemia, unspecified; M81.0 Age-related osteoporosis without current pathological fracture; I25.2 Old myocardial infarction; Z79.4 Long term (current) use of insulin
CPT/HCPCS: 36415; 36430; 71045; 80048; 80053; 81003; 82962; 83540; 83605; 83880; 84155; 84484; 84560; 85025; 85610; 85730; 86850; 86900; 86901; 86920; 87040; 94640; 94664; 96374; 96375; 99291-25

== ENCOUNTER 2017-10-31 23:03 | Inpatient (IN) | payer MEDICARE, OTHER ==
[2017-10-31 23:17] LABS: ADD MAN DIFF? NO
[2017-10-31 23:21] LABS: WHITE BLOOD COUNT 8.9 10^3/ul (4.8-10.8)
[2017-10-31 23:21] LABS: BASOPHIL # 0.1 10^3/ul (0.0-0.1); BASOPHILS % 0.6 % (0.0-2.0); EOSINOPHILS # 0.2 10^3/ul (0.0-0.5); EOSINOPHILS % 1.9 % (0.0-7.0); HEMOGLOBIN 11.2 g/dl (12.0-16.0); LYMPHOCYTES # 1.3 10^3/ul (0.8-2.9); MEAN CORPUSCULAR HEMOGLOBIN 31.9 pg (29.0-33.0); MEAN CORPUSCULAR HGB CONC 32.9 g/dl (32.0-37.0); MEAN CORPUSCULAR VOLUME 96.9 fl (82.0-101.0); MEAN PLATELET VOLUME 10.3 fl (7.4-10.4); MONOCYTE # 0.6 10^3/ul (0.3-0.9); MONOCYTES % 6.7 % (0.0-11.0); NEUTROPHIL # 6.8 10^3/ul (1.6-7.5); NEUTROPHILS % 76.5 % (39.0-77.0); PLATELET COUNT 222 10^3/UL (140-415); RED BLOOD COUNT 3.51 10^6/ul (4.20-5.40); RED CELL DISTRIBUTION WIDTH 15.5 % (11.5-14.5)
[2017-10-31] MEDS: FUROSEMIDE 40 MG INJ IV (23:29)
[2017-10-31] MEDS: NITROGLYCERIN 50 MG/D5W (PMX) 250 ML IV ×2 (23:32→23:42)
[2017-10-31 23:43] LABS: ALANINE AMINOTRANSFERASE 12 IU/L (13-69); ALBUMIN 3.9 g/dl (3.3-4.9); ALBUMIN/GLOBULIN RATIO 1.18; ALKALINE PHOSPHATASE 48 IU/L (42-121); ANION GAP 19 (8-16); ASPARTATE AMINO TRANSFERASE 36 IU/L (15-46); BILIRUBIN,INDIRECT 0.2 mg/dl (0-1.1); BILIRUBIN,TOTAL 0.2 mg/dl (0.2-1.3); BLOOD UREA NITROGEN 78 mg/dl (7-20); CARBON DIOXIDE 23 mmol/L (21-31); CHLORIDE 107 mmol/L (97-110); CREATININE 1.99 mg/dl (0.44-1.00); GLUCOSE 135 mg/dl (70-220); POTASSIUM 4.2 mmol/L (3.5-5.1); SODIUM 145 mmol/L (135-144); TOTAL PROTEIN 7.2 g/dl (6.1-8.1)
[2017-10-31 23:49] LABS: AADO2 Arterial 174.3 mmHg (7.0-24.0); Allen Test ACCEPTAB; Arterial Base Excess -1.3 mmol/L (-3.0-3); Arterial Blood Gas Oxygen Sat 93.6 mmHG (95.0-100.0); Arterial COHb 0.4 % (0.0-3.0); Arterial Fraction of Oxyhgb 93.1 % (93.0-99.0); Arterial HCO3 22.6 mmol/L (22.0-26.0); Arterial MetHb 0.1 % (0.0-1.5); Arterial Total Hemglobin 11.7 g/dl (12.0-18.0); Arterial pCO2 35.2 mmhg (35-45); Blood Gas IEPAP 15/5; MODE MASK - BIPAP; Site Right Radial
[2017-10-31 23:51] LABS: INR 1.17; PROTIME 15.1 Sec (11.9-14.9); PT RATIO 1.2
[2017-10-31 23:52] LABS: PARTIAL THROMBOPLASTIN TIME 33.2 Sec (25.0-35.0)
[2017-10-31 23:54] LABS: TROPONIN-I 0.059 ng/ml (0.000-0.120)
[2017-11-01 01:01] LABS: B-TYPE NATRIURETIC PEPTIDE 82400 PG/ML (0-450)
[2017-11-01] MEDS ORDERED: morphine 2 MG INJ IV (02:30)
[2017-11-01] MEDS ORDERED: GLUCOSE GEL 15 GRAM TUBE BUCCAL (03:00)
[2017-11-01] MEDS ORDERED: GLUCAGON 1 MG INJ IM (03:00)
[2017-11-01] MEDS ORDERED: DEXTROSE 50% 50 ML SYRINGE IV ×2 (03:00)
[2017-11-01] MEDS ORDERED: GLUCOSE GEL 15 GRAM TUBE PO ×2 (03:00)
[2017-11-01] MEDS ORDERED: PENDING SANTYL ORDER FOR WOUND CARE XX (03:30)
[2017-11-01 05:08] LABS: ADD MAN DIFF? NO
[2017-11-01 05:22] LABS: WHITE BLOOD COUNT 6.2 10^3/ul (4.8-10.8)
[2017-11-01 05:22] LABS: BASOPHILS % 0.5 % (0.0-2.0); EOSINOPHILS # 0.1 10^3/ul (0.0-0.5); EOSINOPHILS % 1.5 % (0.0-7.0); HEMATOCRIT 30.6 % (37.0-47.0); HEMOGLOBIN 10.2 g/dl (12.0-16.0); LYMPHOCYTES # 0.8 10^3/ul (0.8-2.9); LYMPHOCYTES % 13.5 % (15.0-51.0); MEAN CORPUSCULAR HEMOGLOBIN 32.6 pg (29.0-33.0); MEAN CORPUSCULAR HGB CONC 33.3 g/dl (32.0-37.0); MEAN CORPUSCULAR VOLUME 97.8 fl (82.0-101.0); MEAN PLATELET VOLUME 10.7 fl (7.4-10.4); MONOCYTE # 0.5 10^3/ul (0.3-0.9); MONOCYTES % 7.4 % (0.0-11.0); NEUTROPHIL # 4.8 10^3/ul (1.6-7.5); NEUTROPHILS % 76.8 % (39.0-77.0); PLATELET COUNT 189 10^3/UL (140-415); RED BLOOD COUNT 3.13 10^6/ul (4.20-5.40); RED CELL DISTRIBUTION WIDTH 15.6 % (11.5-14.5)
[2017-11-01] MEDS: PANTOPRAZOLE (EC) 40 MG TAB PO (05:35)
[2017-11-01] MEDS: FUROSEMIDE 40 MG INJ IV ×2 (05:35→17:53)
[2017-11-01 05:39] LABS: CREATINE KINASE 31 IU/L (23-200)
[2017-11-01 05:41] LABS: ANION GAP 16 (8-16); BLOOD UREA NITROGEN 77 mg/dl (7-20); CALCIUM 8.8 mg/dl (8.4-10.2); CARBON DIOXIDE 26 mmol/L (21-31); CHLORIDE 109 mmol/L (97-110); GLUCOSE 119 mg/dl (70-220); POTASSIUM 3.8 mmol/L (3.5-5.1); SODIUM 147 mmol/L (135-144)
[2017-11-01 05:47] LABS: CK INDEX 5.1; CK-MB 1.58 ng/ml (0.0-2.4); TROPONIN-I 0.083 ng/ml (0.000-0.120)
[2017-11-01 06:06] LABS: B-TYPE NATRIURETIC PEPTIDE 85200 PG/ML (0-450)
[2017-11-01] MEDS: INSULIN ASPART [NOVOLOG] 3 ML PEN SC ×4 (07:35→21:00)
[2017-11-01] MEDS: ASPIRIN (EC) 81 MG TAB PO (08:52)
[2017-11-01] MEDS: NIFEdipine (XL) 60 MG TAB PO ×2 (08:52→20:00)
[2017-11-01] MEDS: ALLOPURINOL 100 MG TAB PO (08:53)
[2017-11-01] MEDS: POTASSIUM CHLORIDE (SR) 10 MEQ TAB PO (08:53)
[2017-11-01] MEDS: FERROUS SULFATE (EC) 325 MG TAB PO ×2 (08:53→20:00)
[2017-11-01] MEDS: ISOSORBIDE MONONITRATE(SR)60 MG TAB PO (08:53)
[2017-11-01] MEDS ORDERED: ISOSORBIDE MONONITRATE 20 MG TAB PO (09:00)
[2017-11-01] MEDS ORDERED: NIFEdipine 10 MG CAP PO (09:00)
[2017-11-01] MEDS: NITROGLYCERIN 50 MG/D5W (PMX) 250 ML IV (10:32)
[2017-11-01 12:05] LABS: CREATINE KINASE 28 IU/L (23-200)
[2017-11-01 12:13] LABS: CK-MB 1.39 ng/ml (0.0-2.4); TROPONIN-I 0.057 ng/ml (0.000-0.120)
[2017-11-01] MEDS: DOCUSATE SODIUM 250 MG CAP PO ×2 (12:56→20:00)
[2017-11-01] MEDS: LORAZEPAM 0.5 MG TAB PO (21:06)
[2017-11-01] MEDS: ZOLPIDEM 5 MG TAB PO (21:56)
[2017-11-02] MEDS: ACCU-CHEK XX (02:24)
[2017-11-02 05:07] LABS: ADD MAN DIFF? NO
[2017-11-02 05:19] LABS: BASOPHILS % 0.5 % (0.0-2.0); EOSINOPHILS # 0.2 10^3/ul (0.0-0.5); EOSINOPHILS % 2.8 % (0.0-7.0); HEMATOCRIT 29.9 % (37.0-47.0); HEMOGLOBIN 9.9 g/dl (12.0-16.0); LYMPHOCYTES # 0.8 10^3/ul (0.8-2.9); MEAN CORPUSCULAR HEMOGLOBIN 31.9 pg (29.0-33.0); MEAN CORPUSCULAR HGB CONC 33.1 g/dl (32.0-37.0); MEAN CORPUSCULAR VOLUME 96.5 fl (82.0-101.0); MEAN PLATELET VOLUME 10.7 fl (7.4-10.4); MONOCYTE # 0.4 10^3/ul (0.3-0.9); MONOCYTES % 7.5 % (0.0-11.0); NEUTROPHIL # 4.3 10^3/ul (1.6-7.5); NEUTROPHILS % 74.9 % (39.0-77.0); PLATELET COUNT 176 10^3/UL (140-415); RED CELL DISTRIBUTION WIDTH 15.3 % (11.5-14.5)
[2017-11-02 05:19] LABS: WHITE BLOOD COUNT 5.7 10^3/ul (4.8-10.8)
[2017-11-02 05:36] LABS: ANION GAP 18 (8-16); BLOOD UREA NITROGEN 77 mg/dl (7-20); CALCIUM 8.6 mg/dl (8.4-10.2); CARBON DIOXIDE 25 mmol/L (21-31); CHLORIDE 106 mmol/L (97-110); CREATININE 1.96 mg/dl (0.44-1.00); GLUCOSE 98 mg/dl (70-220); POTASSIUM 3.5 mmol/L (3.5-5.1); SODIUM 145 mmol/L (135-144)
[2017-11-02 05:59] LABS: B-TYPE NATRIURETIC PEPTIDE 94000 PG/ML (0-450)
[2017-11-02] MEDS: PANTOPRAZOLE (EC) 40 MG TAB PO (06:00)
[2017-11-02] MEDS: FUROSEMIDE 40 MG INJ IV ×2 (06:01→18:15)
[2017-11-02] MEDS: INSULIN ASPART [NOVOLOG] 3 ML PEN SC ×4 (07:35→21:00)
[2017-11-02] MEDS: ALLOPURINOL 100 MG TAB PO (08:37)
[2017-11-02] MEDS: NIFEdipine (XL) 60 MG TAB PO ×2 (08:37→21:02)
[2017-11-02] MEDS: DOCUSATE SODIUM 250 MG CAP PO ×2 (08:37→21:03)
[2017-11-02] MEDS: FERROUS SULFATE (EC) 325 MG TAB PO ×2 (08:37→21:03)
[2017-11-02] MEDS: ASPIRIN (EC) 81 MG TAB PO (08:37)
[2017-11-02] MEDS: ISOSORBIDE MONONITRATE(SR)60 MG TAB PO (08:38)
[2017-11-02] MEDS: POTASSIUM CHLORIDE (SR) 10 MEQ TAB PO (08:38)
[2017-11-02] MEDS: ZOLPIDEM 5 MG TAB PO (21:02)
[2017-11-02] MEDS: LORAZEPAM 0.5 MG TAB PO (21:02)
[2017-11-03] MEDS: ACCU-CHEK XX (01:31)
[2017-11-03] MEDS: PANTOPRAZOLE (EC) 40 MG TAB PO (05:48)
[2017-11-03] MEDS: FUROSEMIDE 40 MG INJ IV ×2 (05:48→17:38)
[2017-11-03 06:52] LABS: ADD MAN DIFF? NO
[2017-11-03 07:06] LABS: BASOPHILS % 0.5 % (0.0-2.0); EOSINOPHILS # 0.2 10^3/ul (0.0-0.5); EOSINOPHILS % 3.3 % (0.0-7.0); HEMATOCRIT 30.7 % (37.0-47.0); HEMOGLOBIN 9.9 g/dl (12.0-16.0); LYMPHOCYTES % 17.3 % (15.0-51.0); MEAN CORPUSCULAR HGB CONC 32.2 g/dl (32.0-37.0); MEAN CORPUSCULAR VOLUME 96.2 fl (82.0-101.0); MEAN PLATELET VOLUME 10.4 fl (7.4-10.4); MONOCYTE # 0.5 10^3/ul (0.3-0.9); MONOCYTES % 8.2 % (0.0-11.0); NEUTROPHILS % 70.5 % (39.0-77.0); PLATELET COUNT 175 10^3/UL (140-415); RED BLOOD COUNT 3.19 10^6/ul (4.20-5.40); RED CELL DISTRIBUTION WIDTH 14.9 % (11.5-14.5)
[2017-11-03 07:06] LABS: WHITE BLOOD COUNT 5.7 10^3/ul (4.8-10.8)
[2017-11-03 07:26] LABS: ANION GAP 17 (8-16); BLOOD UREA NITROGEN 86 mg/dl (7-20); CALCIUM 8.6 mg/dl (8.4-10.2); CARBON DIOXIDE 25 mmol/L (21-31); CHLORIDE 106 mmol/L (97-110); CREATININE 2.22 mg/dl (0.44-1.00); GLUCOSE 92 mg/dl (70-220); POTASSIUM 3.4 mmol/L (3.5-5.1); SODIUM 145 mmol/L (135-144)
[2017-11-03] MEDS: INSULIN ASPART [NOVOLOG] 3 ML PEN SC ×4 (07:47→20:40)
[2017-11-03 07:48] LABS: B-TYPE NATRIURETIC PEPTIDE 90200 PG/ML (0-450)
[2017-11-03] MEDS: FERROUS SULFATE (EC) 325 MG TAB PO ×2 (08:45→20:40)
[2017-11-03] MEDS: ALLOPURINOL 100 MG TAB PO (08:45)
[2017-11-03] MEDS: POTASSIUM CHLORIDE (SR) 10 MEQ TAB PO (08:45)
[2017-11-03] MEDS: DOCUSATE SODIUM 250 MG CAP PO ×2 (08:46→20:38)
[2017-11-03] MEDS: NIFEdipine (XL) 60 MG TAB PO ×2 (08:46→20:39)
[2017-11-03] MEDS: ISOSORBIDE MONONITRATE(SR)60 MG TAB PO (08:46)
[2017-11-03] MEDS: ASPIRIN (EC) 81 MG TAB PO (10:57)
[2017-11-03] MEDS: ZOLPIDEM 5 MG TAB PO (22:02)
[2017-11-04] MEDS: ACETAMINOPHEN 325 MG TAB PO (01:01)
[2017-11-04] MEDS: ACCU-CHEK XX (01:59)
[2017-11-04] MEDS: PANTOPRAZOLE (EC) 40 MG TAB PO (05:27)
[2017-11-04] MEDS: FUROSEMIDE 40 MG INJ IV (05:27)
[2017-11-04] MEDS: INSULIN ASPART [NOVOLOG] 3 ML PEN SC (07:55)
[2017-11-04] MEDS: DOCUSATE SODIUM 250 MG CAP PO (08:06)
[2017-11-04] MEDS: ASPIRIN (EC) 81 MG TAB PO (08:06)
[2017-11-04] MEDS: ISOSORBIDE MONONITRATE(SR)60 MG TAB PO (08:06)
[2017-11-04] MEDS: FERROUS SULFATE (EC) 325 MG TAB PO (08:06)
[2017-11-04] MEDS: POTASSIUM CHLORIDE (SR) 10 MEQ TAB PO (08:06)
[2017-11-04] MEDS: ALLOPURINOL 100 MG TAB PO (08:07)
[2017-11-04] MEDS: NIFEdipine (XL) 60 MG TAB PO (08:07)
== END 2017-11-04 11:50 | disposition home health service (06) | DRG 291 ==
LOC: E/R 23:03 → TEL 11-02 23:10 → ICU 11-01 00:19
DX: I13.0 Hypertensive heart and chronic kidney disease with heart failure and stage 1 through stage 4 chronic kidney disease, or unspecified chronic kidney disease (principal); I50.23 Acute on chronic systolic (congestive) heart failure; J96.01 Acute respiratory failure with hypoxia; J18.9 Pneumonia, unspecified organism; N17.9 Acute kidney failure, unspecified; I25.10 Atherosclerotic heart disease of native coronary artery without angina pectoris; N18.9 Chronic kidney disease, unspecified; I25.2 Old myocardial infarction; E11.22 Type 2 diabetes mellitus with diabetic chronic kidney disease; M19.90 Unspecified osteoarthritis, unspecified site; M81.0 Age-related osteoporosis without current pathological fracture; K21.9 Gastro-esophageal reflux disease without esophagitis; E78.5 Hyperlipidemia, unspecified; G30.9 Alzheimer's disease, unspecified; F02.80 Dementia in other diseases classified elsewhere, unspecified severity, without behavioral disturbance, psychotic disturbance, mood disturbance, and anxiety; E11.21 Type 2 diabetes mellitus with diabetic nephropathy; D63.1 Anemia in chronic kidney disease; I42.9 Cardiomyopathy, unspecified; I16.0 Hypertensive urgency; I70.90 Unspecified atherosclerosis
CPT/HCPCS: 36415; 36600; 71045; 76604; 80048; 80053; 82550; 82553; 82803; 82962; 83880; 84484; 85025; 85610; 85730; 87081; 93005; 93306; 94660; 96374; 96375; 99291-25

== ENCOUNTER 2018-04-14 13:16 | Inpatient (IN) | payer MEDICARE, OTHER ==
[2018-04-14 13:37] LABS: ADD MAN DIFF? NO
[2018-04-14 13:51] LABS: WHITE BLOOD COUNT 5.7 10^3/ul (4.8-10.8)
[2018-04-14 13:51] LABS: ABNORMAL IP MESSAGE 1; BASOPHILS % 0.4 % (0.0-2.0); EOSINOPHILS % 0.2 % (0.0-7.0); HEMATOCRIT 30.2 % (37.0-47.0); HEMOGLOBIN 9.8 g/dl (12.0-16.0); LYMPHOCYTES # 0.6 10^3/ul (0.8-2.9); LYMPHOCYTES % 9.9 % (15.0-51.0); MEAN CORPUSCULAR HEMOGLOBIN 31.8 pg (29.0-33.0); MEAN CORPUSCULAR HGB CONC 32.5 g/dl (32.0-37.0); MEAN CORPUSCULAR VOLUME 98.1 fl (82.0-101.0); MEAN PLATELET VOLUME 11.1 fl (7.4-10.4); MONOCYTE # 0.5 10^3/ul (0.3-0.9); MONOCYTES % 9.2 % (0.0-11.0); NEUTROPHIL # 4.6 10^3/ul (1.6-7.5); NEUTROPHILS % 79.9 % (39.0-77.0); PLATELET COUNT 158 10^3/UL (140-415); RED BLOOD COUNT 3.08 10^6/ul (4.20-5.40)
[2018-04-14 13:52] LABS: POSITIVE DIFF @See below
[2018-04-14 14:09] LABS: ANION GAP 15 (5-13); BLOOD UREA NITROGEN 86 mg/dl (7-20); CALCIUM 9.5 mg/dl (8.4-10.2); CARBON DIOXIDE 24 mmol/L (21-31); CHLORIDE 101 mmol/L (97-110); CREATININE 2.85 mg/dl (0.44-1.00); GLUCOSE 139 mg/dl (70-220); POTASSIUM 3.7 mmol/L (3.5-5.1); SODIUM 140 mmol/L (135-144)
[2018-04-14 14:10] LABS: INR 1.19; PROTIME 15.2 Sec (11.9-14.9); PT RATIO 1.2
[2018-04-14 14:50] LABS: B-TYPE NATRIURETIC PEPTIDE > 175000 PG/ML (0-450)
[2018-04-14] MEDS ORDERED: ONDANSETRON 4 MG INJ IV (16:00)
[2018-04-14] MEDS ORDERED: ACETAMINOPHEN 325 MG TAB PO ×2 (16:00→19:00)
[2018-04-14] MEDS: FUROSEMIDE 40 MG INJ IV (16:20)
[2018-04-14] MEDS: ASPIRIN 81 MG TAB PO (16:20)
[2018-04-14 20:36] LABS: CREATINE KINASE 29 IU/L (23-200)
[2018-04-14 20:49] LABS: CK INDEX 2.8; CK-MB 0.81 ng/ml (0.0-2.4)
[2018-04-14 20:51] LABS: TROPONIN-I 0.261 ng/ml (0.000-0.120)
[2018-04-14] MEDS: FERROUS SULFATE (EC) 325 MG TAB PO (21:51)
[2018-04-14] MEDS: ZOLPIDEM 5 MG TAB PO (21:51)
[2018-04-14] MEDS: NIFEdipine (XL) 60 MG TAB PO (21:51)
[2018-04-14] MEDS: ACCU-CHEK XX (21:55)
[2018-04-15 02:36] LABS: CREATINE KINASE 28 IU/L (23-200)
[2018-04-15 02:49] LABS: CK INDEX 2.3; CK-MB 0.64 ng/ml (0.0-2.4)
[2018-04-15 02:52] LABS: TROPONIN-I 0.239 ng/ml (0.000-0.120)
[2018-04-15] MEDS ORDERED: ALBUTEROL/IPRATROPIUM (NEB) 3 ML AMP HHN (03:30)
[2018-04-15] MEDS: FUROSEMIDE 40 MG INJ IV ×2 (05:54→18:23)
[2018-04-15 06:02] LABS: ADD MAN DIFF? NO
[2018-04-15 06:08] LABS: WHITE BLOOD COUNT 4.5 10^3/ul (4.8-10.8)
[2018-04-15 06:08] LABS: ABNORMAL IP MESSAGE 1; BASOPHILS % 0.2 % (0.0-2.0); EOSINOPHILS % 0.7 % (0.0-7.0); HEMATOCRIT 26.6 % (37.0-47.0); HEMOGLOBIN 8.8 g/dl (12.0-16.0); LYMPHOCYTES # 0.5 10^3/ul (0.8-2.9); LYMPHOCYTES % 11.4 % (15.0-51.0); MEAN CORPUSCULAR HGB CONC 33.1 g/dl (32.0-37.0); MEAN CORPUSCULAR VOLUME 96.7 fl (82.0-101.0); MEAN PLATELET VOLUME 10.2 fl (7.4-10.4); MONOCYTE # 0.5 10^3/ul (0.3-0.9); MONOCYTES % 10.3 % (0.0-11.0); NEUTROPHIL # 3.5 10^3/ul (1.6-7.5); PLATELET COUNT 129 10^3/UL (140-415); RED BLOOD COUNT 2.75 10^6/ul (4.20-5.40); RED CELL DISTRIBUTION WIDTH 15.2 % (11.5-14.5)
[2018-04-15 06:43] LABS: ANION GAP 15 (5-13); BLOOD UREA NITROGEN 89 mg/dl (7-20); CARBON DIOXIDE 24 mmol/L (21-31); CHLORIDE 101 mmol/L (97-110); CREATININE 3.16 mg/dl (0.44-1.00); GLUCOSE 109 mg/dl (70-220); POTASSIUM 3.8 mmol/L (3.5-5.1); SODIUM 140 mmol/L (135-144)
[2018-04-15 07:02] LABS: POSITIVE DIFF @See below
[2018-04-15] MEDS: ACCU-CHEK XX ×4 (07:49→21:37)
[2018-04-15] MEDS: ALBUTEROL/IPRATROPIUM (NEB) 3 ML AMP HHN ×3 (08:11→19:42)
[2018-04-15 08:13] LABS: B-TYPE NATRIURETIC PEPTIDE 26200 PG/ML (0-450)
[2018-04-15] MEDS: POTASSIUM CHLORIDE (SR) 10 MEQ TAB PO (08:34)
[2018-04-15] MEDS: FERROUS SULFATE (EC) 325 MG TAB PO ×2 (08:34→21:30)
[2018-04-15] MEDS: ASPIRIN (EC) 81 MG TAB PO (08:34)
[2018-04-15] MEDS: LINAGLIPTIN 5 MG TABLET PO (08:34)
[2018-04-15] MEDS: ISOSORBIDE MONONITRATE(SR)60 MG TAB PO (08:35)
[2018-04-15] MEDS: NIFEdipine (XL) 60 MG TAB PO ×2 (08:35→21:30)
[2018-04-15] MEDS: MAGNESIUM HYDROXIDE 30ML CUP PO (08:35)
[2018-04-15] MEDS: METOLAZONE 2.5 MG TAB PO (17:54)
[2018-04-15] MEDS: LORAZEPAM 0.5 MG TAB PO (21:30)
[2018-04-15] MEDS: BALSAM PERU/CASTOR OIL 60 GM TUBE TOP (21:30)
[2018-04-16] MEDS: ALBUTEROL/IPRATROPIUM (NEB) 3 ML AMP HHN ×4 (01:48→19:50)
[2018-04-16 06:37] LABS: ADD MAN DIFF? NO
[2018-04-16] MEDS: METOLAZONE 2.5 MG TAB PO ×2 (06:37→17:37)
[2018-04-16 06:44] LABS: WHITE BLOOD COUNT 4.2 10^3/ul (4.8-10.8)
[2018-04-16 06:44] LABS: ABNORMAL IP MESSAGE 1; BASOPHILS % 0.5 % (0.0-2.0); EOSINOPHILS # 0.1 10^3/ul (0.0-0.5); EOSINOPHILS % 1.2 % (0.0-7.0); HEMATOCRIT 27.4 % (37.0-47.0); HEMOGLOBIN 8.9 g/dl (12.0-16.0); LYMPHOCYTES # 0.4 10^3/ul (0.8-2.9); LYMPHOCYTES % 9.5 % (15.0-51.0); MEAN CORPUSCULAR HEMOGLOBIN 32.1 pg (29.0-33.0); MEAN CORPUSCULAR HGB CONC 32.5 g/dl (32.0-37.0); MEAN CORPUSCULAR VOLUME 98.9 fl (82.0-101.0); MEAN PLATELET VOLUME 10.6 fl (7.4-10.4); MONOCYTE # 0.4 10^3/ul (0.3-0.9); MONOCYTES % 8.4 % (0.0-11.0); NEUTROPHIL # 3.3 10^3/ul (1.6-7.5); NEUTROPHILS % 79.7 % (39.0-77.0); PLATELET COUNT 152 10^3/UL (140-415); POSITIVE DIFF @See below; RED BLOOD COUNT 2.77 10^6/ul (4.20-5.40)
[2018-04-16] MEDS: FUROSEMIDE 40 MG INJ IV ×2 (06:48→17:38)
[2018-04-16 07:12] LABS: ANION GAP 17 (5-13); BLOOD UREA NITROGEN 99 mg/dl (7-20); CALCIUM 9.3 mg/dl (8.4-10.2); CARBON DIOXIDE 26 mmol/L (21-31); CHLORIDE 101 mmol/L (97-110); CREATININE 3.45 mg/dl (0.44-1.00); GLUCOSE 108 mg/dl (70-220); POTASSIUM 3.8 mmol/L (3.5-5.1); SODIUM 144 mmol/L (135-144)
[2018-04-16] MEDS: ACCU-CHEK XX ×4 (07:25→20:53)
[2018-04-16 07:46] LABS: TROPONIN-I 0.198 ng/ml (0.000-0.120)
[2018-04-16 07:56] LABS: B-TYPE NATRIURETIC PEPTIDE > 175000 PG/ML (0-450)
[2018-04-16] MEDS: MAGNESIUM HYDROXIDE 30ML CUP PO (09:00)
[2018-04-16] MEDS: ISOSORBIDE MONONITRATE(SR)60 MG TAB PO (09:00)
[2018-04-16] MEDS: FERROUS SULFATE (EC) 325 MG TAB PO ×2 (09:01→20:40)
[2018-04-16] MEDS: POTASSIUM CHLORIDE (SR) 10 MEQ TAB PO (09:01)
[2018-04-16] MEDS: ASPIRIN (EC) 81 MG TAB PO (09:01)
[2018-04-16] MEDS: NIFEdipine (XL) 60 MG TAB PO ×2 (09:01→20:40)
[2018-04-16] MEDS: LINAGLIPTIN 5 MG TABLET PO (09:01)
[2018-04-16] MEDS: BALSAM PERU/CASTOR OIL 60 GM TUBE TOP ×2 (09:04→20:53)
[2018-04-16] MEDS: DIGOXIN 500 MCG INJ IV (12:30)
[2018-04-16] MEDS: LORAZEPAM 0.5 MG TAB PO (23:15)
[2018-04-17] MEDS: ALBUTEROL/IPRATROPIUM (NEB) 3 ML AMP HHN ×4 (01:37→19:42)
[2018-04-17] MEDS: METOLAZONE 2.5 MG TAB PO ×2 (05:17→17:55)
[2018-04-17] MEDS: FUROSEMIDE 40 MG INJ IV ×2 (06:32→18:35)
[2018-04-17] MEDS: ACCU-CHEK XX ×4 (07:25→21:00)
[2018-04-17 08:27] LABS: ADD MAN DIFF? NO
[2018-04-17 08:32] LABS: ABNORMAL IP MESSAGE 1; BASOPHILS % 0.6 % (0.0-2.0); EOSINOPHILS # 0.2 10^3/ul (0.0-0.5); EOSINOPHILS % 3.2 % (0.0-7.0); HEMOGLOBIN 9.1 g/dl (12.0-16.0); LYMPHOCYTES # 0.6 10^3/ul (0.8-2.9); LYMPHOCYTES % 11.8 % (15.0-51.0); MEAN CORPUSCULAR HEMOGLOBIN 31.8 pg (29.0-33.0); MEAN CORPUSCULAR HGB CONC 32.5 g/dl (32.0-37.0); MEAN CORPUSCULAR VOLUME 97.9 fl (82.0-101.0); MEAN PLATELET VOLUME 11.1 fl (7.4-10.4); MONOCYTE # 0.4 10^3/ul (0.3-0.9); MONOCYTES % 8.2 % (0.0-11.0); NEUTROPHIL # 3.5 10^3/ul (1.6-7.5); NEUTROPHILS % 75.8 % (39.0-77.0); PLATELET COUNT 172 10^3/UL (140-415); RED BLOOD COUNT 2.86 10^6/ul (4.20-5.40); RED CELL DISTRIBUTION WIDTH 15.2 % (11.5-14.5)
[2018-04-17 08:32] LABS: WHITE BLOOD COUNT 4.7 10^3/ul (4.8-10.8)
[2018-04-17] MEDS: LINAGLIPTIN 5 MG TABLET PO (08:35)
[2018-04-17] MEDS: FERROUS SULFATE (EC) 325 MG TAB PO ×2 (08:36→21:01)
[2018-04-17] MEDS: ISOSORBIDE MONONITRATE(SR)60 MG TAB PO (08:36)
[2018-04-17] MEDS: NIFEdipine (XL) 60 MG TAB PO ×2 (08:36→21:01)
[2018-04-17] MEDS: ASPIRIN (EC) 81 MG TAB PO (08:36)
[2018-04-17] MEDS: POTASSIUM CHLORIDE (SR) 10 MEQ TAB PO (08:37)
[2018-04-17] MEDS: BALSAM PERU/CASTOR OIL 60 GM TUBE TOP ×2 (08:37→21:02)
[2018-04-17] MEDS: MAGNESIUM HYDROXIDE 30ML CUP PO (08:38)
[2018-04-17 08:40] LABS: POSITIVE DIFF @See below
[2018-04-17 08:53] LABS: ANION GAP 15 (5-13); BLOOD UREA NITROGEN 114 mg/dl (7-20); CALCIUM 9.2 mg/dl (8.4-10.2); CARBON DIOXIDE 26 mmol/L (21-31); CHLORIDE 99 mmol/L (97-110); CREATININE 3.23 mg/dl (0.44-1.00); GLUCOSE 121 mg/dl (70-220); POTASSIUM 4.1 mmol/L (3.5-5.1); SODIUM 140 mmol/L (135-144)
[2018-04-17 09:31] LABS: B-TYPE NATRIURETIC PEPTIDE > 175000 PG/ML (0-450)
[2018-04-17 10:02] LABS: CREATINE KINASE 25 IU/L (23-200)
[2018-04-17 10:13] LABS: CK INDEX 2.8
[2018-04-17 10:18] LABS: TROPONIN-I 0.153 ng/ml (0.000-0.120)
[2018-04-17 22:39] LABS: Allen Test ACCEPTAB; Arterial Blood Gas Oxygen Sat 93.7 mmHG (95.0-100.0); Arterial COHb 0.3 % (0.0-3.0); Arterial Fraction of Oxyhgb 93.2 % (93.0-99.0); Arterial HCO3 27.7 mmol/L (22.0-26.0); Arterial MetHb 0.2 % (0.0-1.5); Blood Gas IEPAP 15/5; MODE MASK - BIPAP; Site Right Radial
[2018-04-17] MEDS: LORAZEPAM 0.5 MG TAB PO (23:43)
[2018-04-18] MEDS: ALBUTEROL/IPRATROPIUM (NEB) 3 ML AMP HHN ×2 (01:38→08:13)
[2018-04-18] MEDS: METOLAZONE 2.5 MG TAB PO (05:46)
[2018-04-18] MEDS: FUROSEMIDE 40 MG INJ IV (06:18)
[2018-04-18] MEDS: ACCU-CHEK XX (07:25)
[2018-04-18] MEDS: ASPIRIN (EC) 81 MG TAB PO (08:32)
[2018-04-18] MEDS: MAGNESIUM HYDROXIDE 30ML CUP PO (08:32)
[2018-04-18] MEDS: NIFEdipine (XL) 60 MG TAB PO (08:32)
[2018-04-18] MEDS: FERROUS SULFATE (EC) 325 MG TAB PO (08:32)
[2018-04-18] MEDS: LINAGLIPTIN 5 MG TABLET PO (08:32)
[2018-04-18] MEDS: POTASSIUM CHLORIDE (SR) 10 MEQ TAB PO (08:32)
[2018-04-18] MEDS: ISOSORBIDE MONONITRATE(SR)60 MG TAB PO (08:33)
[2018-04-18] MEDS: BALSAM PERU/CASTOR OIL 60 GM TUBE TOP (08:33)
== END 2018-04-18 11:21 | disposition home health service (06) | DRG 682 ==
LOC: E/R 13:16 → TEL 15:33
DX: I12.9 Hypertensive chronic kidney disease with stage 1 through stage 4 chronic kidney disease, or unspecified chronic kidney disease (principal); I50.23 Acute on chronic systolic (congestive) heart failure; N17.9 Acute kidney failure, unspecified; N18.3 Chronic kidney disease, stage 3 (moderate); E11.9 Type 2 diabetes mellitus without complications; Z99.81 Dependence on supplemental oxygen; E78.5 Hyperlipidemia, unspecified; M81.0 Age-related osteoporosis without current pathological fracture; K21.9 Gastro-esophageal reflux disease without esophagitis; I13.0 Hypertensive heart and chronic kidney disease with heart failure and stage 1 through stage 4 chronic kidney disease, or unspecified chronic kidney disease; N18.9 Chronic kidney disease, unspecified; D64.9 Anemia, unspecified
CPT/HCPCS: 36415; 36600; 71045; 80048; 82550; 82553; 82803; 82962; 83880; 84484; 85025; 85610; 93005; 93306; 94640; 94660; 99285-25

== ENCOUNTER 2018-04-26 13:25 | Inpatient (IN) | payer MEDICARE, OTHER ==
[2018-04-26 13:40] LABS: ADD MAN DIFF? NO
[2018-04-26] MEDS: morphine 4 MG/ML VIAL IV ×2 (13:44→13:52)
[2018-04-26 13:46] LABS: ABNORMAL IP MESSAGE 1; HEMATOCRIT 20.4 % (37.0-47.0); MEAN CORPUSCULAR HGB CONC 32.8 g/dl (32.0-37.0); MONOCYTE # 0.5 10^3/ul (0.3-0.9)
[2018-04-26 13:49] LABS: BASOPHILS % 0.3 % (0.0-2.0); EOSINOPHILS % 0.1 % (0.0-7.0); LYMPHOCYTES # 0.8 10^3/ul (0.8-2.9); LYMPHOCYTES % 11.5 % (15.0-51.0); MEAN CORPUSCULAR HEMOGLOBIN 32.4 pg (29.0-33.0); MEAN CORPUSCULAR VOLUME 98.6 fl (82.0-101.0); MEAN PLATELET VOLUME 10.5 fl (7.4-10.4); MONOCYTES % 7.9 % (0.0-11.0); NEUTROPHIL # 5.3 10^3/ul (1.6-7.5); NEUTROPHILS % 79.6 % (39.0-77.0); PLATELET COUNT 199 10^3/UL (140-415); POSITIVE DIFF @See below; RED BLOOD COUNT 2.07 10^6/ul (4.20-5.40)
[2018-04-26 13:49] LABS: WHITE BLOOD COUNT 6.7 10^3/ul (4.8-10.8)
[2018-04-26] MEDS: SOD CHLORIDE 0.9% 1,000 ML IV (13:50)
[2018-04-26 13:51] LABS: HEMOGLOBIN 6.7 g/dl (12.0-16.0)
[2018-04-26] MEDS: ONDANSETRON 4 MG INJ IV ×2 (13:53→21:42)
[2018-04-26 14:03] LABS: ALANINE AMINOTRANSFERASE 25 IU/L (13-69); ALBUMIN 3.4 g/dl (3.3-4.9); ALBUMIN/GLOBULIN RATIO 1.36; ALKALINE PHOSPHATASE 31 IU/L (42-121); ANION GAP 15 (5-13); ASPARTATE AMINO TRANSFERASE 39 IU/L (15-46); CALCIUM 8.6 mg/dl (8.4-10.2); CARBON DIOXIDE 27 mmol/L (21-31); CHLORIDE 101 mmol/L (97-110); CREATININE 2.24 mg/dl (0.44-1.00); GLUCOSE 133 mg/dl (70-220); LIPASE 518 U/L (23-300); POTASSIUM 3.7 mmol/L (3.5-5.1); SODIUM 143 mmol/L (135-144); TOTAL PROTEIN 5.9 g/dl (6.1-8.1)
[2018-04-26 14:10] LABS: BLOOD UREA NITROGEN 181 mg/dl (7-20)
[2018-04-26 14:41] LABS: ADD UMIC NO; UR ASCORBIC ACID NEGATIVE (NEGATIVE); UR BACTERIA FEW /HPF (NONE SEEN); UR BILIRUBIN (Dip) NEGATIVE (NEGATIVE); UR BLOOD (Dip) NEGATIVE (NEGATIVE); UR CLARITY SLIGHTLY CLOUDY (CLEAR); UR COLOR YELLOW (YELLOW); UR GLUCOSE (Dip) NEGATIVE (NEGATIVE); UR KETONES (Dip) NEGATIVE (NEGATIVE); UR LEUKOCYTE ESTERASE (Dip) NEGATIVE Leu/ul (NEGATIVE); UR NITRITE (Dip) NEGATIVE (NEGATIVE); UR RBC 0 /HPF (0-5); UR SPECIFIC GRAVITY (Dip) 1.012 (1.003-1.030); UR SQUAMOUS EPITHELIAL CELL FEW /HPF (FEW); UR TOTAL PROTEIN (Dip) NEGATIVE (NEGATIVE); UR UROBILINOGEN (Dip) NEGATIVE (NEGATIVE); UR WBC 0 /HPF (0-5)
[2018-04-26 15:44] LABS: IMMEDIATE SPIN CROSSMATCH 1 3
[2018-04-26] MEDS ORDERED: ACETAMINOPHEN 325 MG TAB PO ×2 (17:30→20:00)
[2018-04-26] MEDS ORDERED: ONDANSETRON 4 MG INJ IV (17:30)
[2018-04-26] MEDS ORDERED: ZOLPIDEM 5 MG TAB PO (20:00)
[2018-04-26] MEDS ORDERED: GLUCAGON 1 MG INJ IM (20:00)
[2018-04-26] MEDS ORDERED: GLUCOSE GEL 15 GRAM TUBE BUCCAL (20:00)
[2018-04-26] MEDS ORDERED: GLUCOSE GEL 15 GRAM TUBE PO ×2 (20:00)
[2018-04-26] MEDS ORDERED: ALBUTEROL/IPRATROPIUM (NEB) 3 ML AMP INH (20:00)
[2018-04-26] MEDS ORDERED: DEXTROSE 50% 50 ML SYRINGE IV ×2 (20:00)
[2018-04-26] MEDS: FUROSEMIDE 40 MG INJ IV (21:41)
[2018-04-26] MEDS: NIFEdipine (XL) 60 MG TAB PO (21:41)
[2018-04-26] MEDS: FERROUS SULFATE (EC) 325 MG TAB PO (21:42)
[2018-04-26] MEDS: morphine 2 MG INJ IV (21:47)
[2018-04-26] MEDS: ACCU-CHEK XX (21:54)
[2018-04-27 00:33] LABS: OCCULT BLOOD STOOL POSITIVE (NEGATIVE)
[2018-04-27] MEDS: ONDANSETRON 4 MG INJ IV ×2 (04:25→12:48)
[2018-04-27] MEDS: morphine 2 MG INJ IV ×2 (04:25→12:50)
[2018-04-27] MEDS: PANTOPRAZOLE 40 MG INJ IV (05:11)
[2018-04-27 06:11] LABS: WHITE BLOOD COUNT 7.2 10^3/ul (4.8-10.8)
[2018-04-27 06:12] LABS: ABNORMAL IP MESSAGE 1; HEMATOCRIT 20.8 % (37.0-47.0); MEAN CORPUSCULAR HEMOGLOBIN 30.7 pg (29.0-33.0); MEAN CORPUSCULAR HGB CONC 33.2 g/dl (32.0-37.0); MEAN CORPUSCULAR VOLUME 92.4 fl (82.0-101.0); MEAN PLATELET VOLUME 10.9 fl (7.4-10.4); PLATELET COUNT 110 10^3/UL (140-415); RED BLOOD COUNT 2.25 10^6/ul (4.20-5.40); RED CELL DISTRIBUTION WIDTH 18.2 % (11.5-14.5)
[2018-04-27 06:59] LABS: ADD MAN DIFF? YES; HEMOGLOBIN 6.9 g/dl (12.0-16.0); POSITIVE DIFF @See below
[2018-04-27] MEDS: ACCU-CHEK XX ×2 (07:25→11:43)
[2018-04-27 08:15] LABS: ANISOCYTOSIS 1+ (0-0); BASOPHILS % (M) 1 % (0-2); GIANT THROMBO% (M) 2 % (0-0); LYMPHOCYTES #M 0.5 10^3/ul (0.8-2.9); LYMPHOCYTES % (M) 8 % (15-51); MICROCYTOSIS 1+ (0-0); MONOCYTES % (M) 1 % (0-11); PLATELET ESTIMATE DECREASED; POIKILOCYTOSIS 1+ (0-0); POLYCHROMASIA 1+ (0-0); SEGMENTED NEUTROPHILS (M) % 90 % (39-77)
[2018-04-27] MEDS: FENOFIBRATE 145 MG TAB PO (08:51)
[2018-04-27] MEDS: FERROUS SULFATE (EC) 325 MG TAB PO (08:51)
[2018-04-27] MEDS: LINAGLIPTIN 5 MG TABLET PO (08:52)
[2018-04-27] MEDS: ISOSORBIDE MONONITRATE(SR)60 MG TAB PO (08:52)
[2018-04-27] MEDS: NIFEdipine (XL) 60 MG TAB PO (08:52)
[2018-04-27] MEDS ORDERED: ASPIRIN (EC) 81 MG TAB PO (09:00)
[2018-04-27] MEDS ORDERED: FUROSEMIDE 40 MG TAB PO (09:00)
[2018-04-27 11:31] LABS: B-TYPE NATRIURETIC PEPTIDE 69000 PG/ML (0-450)
[2018-04-27] MEDS: FUROSEMIDE 40 MG INJ IV (11:44)
[2018-04-27 11:58] LABS: HEMATOCRIT 23.7 % (37.0-47.0); HEMOGLOBIN 7.9 g/dl (12.0-16.0)
[2018-04-27 12:30] LABS: TROPONIN-I 0.099 ng/ml (0.000-0.120)
[2018-04-27] MEDS: SOD FERRIC GLUC COMPLX 125 MG in SOD CHLORIDE 0.9% 100 ML IVPB (12:50)
[2018-04-27] MEDS: LORAZEPAM 0.5 MG TAB PO (15:41)
[2018-04-27] MEDS ORDERED: EPOETIN ALFA (NESRD) 3,000 UNITS/ML VIAL SC (17:00)
[2018-04-27] MEDS ORDERED: PANTOPRAZOLE 40 MG INJ IV (18:00)
== END 2018-04-27 17:25 | disposition hospice, home (50) | DRG 378 ==
LOC: E/R 13:25 → TEL 17:01
PROC: 30233N1 Transfusion of Nonautologous Red Blood Cells into Peripheral Vein, Percutaneous Approach (ICD-10-PCS; principal; 2018-04-26)
PROC: 3E0234Z Introduction of Serum, Toxoid and Vaccine into Muscle, Percutaneous Approach (ICD-10-PCS; 2018-04-27)
DX: K92.2 Gastrointestinal hemorrhage, unspecified (principal); D68.9 Coagulation defect, unspecified; I13.0 Hypertensive heart and chronic kidney disease with heart failure and stage 1 through stage 4 chronic kidney disease, or unspecified chronic kidney disease; N17.9 Acute kidney failure, unspecified; I42.9 Cardiomyopathy, unspecified; D64.9 Anemia, unspecified; J44.9 Chronic obstructive pulmonary disease, unspecified; E11.22 Type 2 diabetes mellitus with diabetic chronic kidney disease; N18.9 Chronic kidney disease, unspecified; I50.9 Heart failure, unspecified; K21.9 Gastro-esophageal reflux disease without esophagitis; F17.290 Nicotine dependence, other tobacco product, uncomplicated; I25.10 Atherosclerotic heart disease of native coronary artery without angina pectoris; M41.9 Scoliosis, unspecified; M81.0 Age-related osteoporosis without current pathological fracture; E11.21 Type 2 diabetes mellitus with diabetic nephropathy; E11.51 Type 2 diabetes mellitus with diabetic peripheral angiopathy without gangrene; Z79.82 Long term (current) use of aspirin
CPT/HCPCS: 36415; 36430; 71045; 74176; 80053; 81001; 81003; 82270; 82962; 83690; 83880; 84484; 85014; 85018; 85025; 86850; 86900; 86901; 86920; 90686; 93005; 96374; 96375; 99285-25